=== PATIENT | male | born 1940 | race Two or more races ===

== ENCOUNTER 2018-09-05 07:28 | Day surgery (SDC) | payer MEDICARE, OTHER ==
[~2018-09-05] VITALS: Ht 177.8 cm; Wt 85.0 kg
[~2018-09-05 07:28] MED LIST: ASCO500 PO; AZAT50 PO; CALCAVITD PO; CHOL10002 PO; CLOBETTC TP; DICL.1SO OD; DICL25ER PO; Echinacea400 MG PO; FLUT.05NI; MELO7.5 PO; MULVITA PO; NASACORT10.8 ML; PHENY100ER PO; PRED10 PO; RA MED; REMICADE; Remicade100 MG IV; TOCO400 PO; TURMERIC500 MG PO; VITB100 PO; ZINC15 PO; ZYRTEC10 M1 PO; [UNRECOGNIZED DRUG - OTHER]
[2018-09-05] MEDS ORDERED: Rituxan10 MG/ML (08:09)
[2018-09-05] MEDS ORDERED: VOLTAREN100 GM (08:11)
[2018-09-05] MEDS ORDERED: OXYB5ER (08:11)
[2018-09-05] MEDS ORDERED: FINA5 (08:11)
== END 2018-09-05 10:06 | disposition home or self-care (01) ==
LOC: ORSCSDS 07:28
PROVIDERS: Internal Medicine Gastroenterology
PROC: 0DBM8ZX Excision of Descending Colon, Via Natural or Artificial Opening Endoscopic, Diagnostic (ICD-10-PCS; principal; 2018-09-05 09:00)
DX: Z12.11 Encounter for screening for malignant neoplasm of colon (principal); K63.5 Polyp of colon; Z86.010 Personal history of colon polyps; R56.9 Unspecified convulsions; G47.33 Obstructive sleep apnea (adult) (pediatric); Z79.899 Other long term (current) drug therapy
CPT/HCPCS: 88305; J2704; J7120

== ENCOUNTER 2020-11-03 09:20 | Inpatient (IN) | payer MEDICARE, OTHER ==
[~2020-11-03] VITALS: Ht 165.1 cm; Wt 88.0 kg
[~2020-11-03 09:20] MED LIST changes: +FINA5; +OXYB5ER; +Rituxan10 MG/ML; +VOLTAREN100 GM
[2020-11-03 10:24] LABS: PCO2 Arterial 35.4 mmHg (35-45); PO2 Arterial 62.3 mmHg (80-100); pH Blood Arterial 7.49 (7.35-7.45)
[2020-11-03 10:26] LABS: BASOPHILS ABSOLUTE AUTO 0.01 K/mm3 (0.00-0.23); BASOPHILS PERCENT AUTO 0 % (0-2); EOSINOPHILS ABSOLUTE AUTO 0.03 K/mm3 (0.00-0.68); EOSINOPHILS PERCENT AUTO 1 % (0-6); Hematocrit 40.3 % (37.0-53.0); Hemoglobin 13.9 g/dL (13.5-17.5); IMMATURE GRAN ABSOLUTE AUTO 0.05 K/mm3 (0.00-0.10); IMMATURE GRAN PERCENT AUTO 1 % (0-1); LYMPHOCYTES ABSOLUTE AUTO 0.63 K/mm3 (0.84-5.20); LYMPHOCYTES PERCENT AUTO 10 % (21-46); MONOCYTES ABSOLUTE AUTO 0.29 K/mm3 (0.16-1.47); MONOCYTES PERCENT AUTO 5 % (4-13); Mean Corpuscular HGB 30.8 pg (26.0-34.0); Mean Corpuscular HGB Conc 34.5 g/dL (31.5-36.5); Mean Corpuscular Volume 89 fL (80-100); Mean Platelet Volume 9.2 fL (9.1-12.4); NEUTROPHILS ABSOLUTE AUTO 5.44 K/mm3 (1.96-9.15); NEUTROPHILS PERCENT AUTO 84 % (41-73); Platelet Count 259 K/mm3 (150-400); RDW Coefficient Variation 13.5 % (11.7-14.2); RDW Standard Deviation 44.5 fL (35.1-46.3); Red Blood Cell Count 4.52 M/mm3 (4.30-5.90); White Blood Cell Count 6.45 K/mm3 (4.00-11.30)
[2020-11-03 10:38] LABS: Albumin, Blood 2.8 g/dL (3.4-5.0); Albumin/Globulin Ratio 0.6 (0.8-1.8); Bilirubin, Total 0.4 mg/dL (0.1-1.0); Calcium, Blood 8.5 mg/dL (8.5-10.1); Creatinine, Blood 1.22 mg/dL (0.60-1.20); Globulin, Blood 4.9 g/dL (2.2-4.0); Potassium, Blood 4.2 mmol/L (3.5-5.5); Total Protein, Blood 7.7 g/dL (6.4-8.2)
[2020-11-03 11:18] LABS: International Normalized Ratio 1.05; Prothrombin Time Results 11.3 Sec (9.7-11.5)
[2020-11-03 12:04] LABS: SARS-Cov-2 (COVID-19) PCR, MMC POSITIVE (NEGATIVE)
--- NOTE | 2020-11-03 14:55 | NUR ---
Telephone report from ED.
[2020-11-03] MEDS ORDERED: PHENY100ER PO (15:51)
--- NOTE | 2020-11-03 17:50 | NUR ---
Pt arrived from ED on stretcher, and was slid over to PCU bed. 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 what is your lung disease called? What medications are you taking at home?" He gives some conflicting answers at times. Son called and said that the pt lost his just 18 months ago to stomach cancer, and that it was his who handled a lot of the details for the pt. 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 Pt is cooperative, non-anxious, and is able to answer the majority of the admission history questions. States that he recevied both doses of the Moderna Covid vaccine this year, which his son confirms is true.
[2020-11-04 04:11] LABS: BASOPHILS ABSOLUTE AUTO 0.01 K/mm3 (0.00-0.23); BASOPHILS PERCENT AUTO 0 % (0-2); EOSINOPHILS ABSOLUTE AUTO 0.01 K/mm3 (0.00-0.68); EOSINOPHILS PERCENT AUTO 0 % (0-6); Hematocrit 38.6 % (37.0-53.0); Hemoglobin 12.7 g/dL (13.5-17.5); IMMATURE GRAN ABSOLUTE AUTO 0.03 K/mm3 (0.00-0.10); IMMATURE GRAN PERCENT AUTO 0 % (0-1); LYMPHOCYTES ABSOLUTE AUTO 0.59 K/mm3 (0.84-5.20); LYMPHOCYTES PERCENT AUTO 8 % (21-46); MONOCYTES ABSOLUTE AUTO 0.37 K/mm3 (0.16-1.47); MONOCYTES PERCENT AUTO 5 % (4-13); Mean Corpuscular HGB 30.1 pg (26.0-34.0); Mean Corpuscular HGB Conc 32.9 g/dL (31.5-36.5); Mean Corpuscular Volume 92 fL (80-100); Mean Platelet Volume 9.2 fL (9.1-12.4); NEUTROPHILS ABSOLUTE AUTO 6.32 K/mm3 (1.96-9.15); NEUTROPHILS PERCENT AUTO 86 % (41-73); Platelet Count 275 K/mm3 (150-400); RDW Coefficient Variation 13.8 % (11.7-14.2); RDW Standard Deviation 46.5 fL (35.1-46.3); Red Blood Cell Count 4.22 M/mm3 (4.30-5.90); White Blood Cell Count 7.33 K/mm3 (4.00-11.30)
[2020-11-04 04:32] LABS: Alanine Aminotransfer (ALT/SGP 141 U/L (12-78); Albumin, Blood 2.3 g/dL (3.4-5.0); Albumin/Globulin Ratio 0.5 (0.8-1.8); Alk Phos 104 U/L (50-136); Anion Gap 5 mmol/L (6-16); Aspartate Aminotrans (AST/SGOT 186 U/L (12-37); Bilirubin, Total 0.3 mg/dL (0.1-1.0); Blood Urea Nitrogen 17 mg/dL (8-24); Bun/Creatinine Ratio 17.9 (12.0-20.0); CO2, Blood 29 mmol/L (21-32); Chloride, Blood 102 mmol/L (98-108); Creatinine, Blood 0.95 mg/dL (0.60-1.20); Globulin, Blood 4.5 g/dL (2.2-4.0); Glomerular Filtration Rate >60 (60-); Glucose, Blood 114 mg/dL (70-99); Magnesium, Blood 2.6 mg/dL (1.6-2.4); Potassium, Blood 4.6 mmol/L (3.5-5.5); Sodium, Blood 136 mmol/L (136-145); Total Protein, Blood 6.8 g/dL (6.4-8.2)
--- NOTE | 2020-11-04 06:22 | NUR ---
SHIFT SUMMARY PATIENT FOUND TO BE A PLEASANT MAN WHO IS A&OX4, FOLLOWING COMMANDS WITH GEN WEAKNESS. LOW GRADE TEMP WITH TMAX OF 99.9. NO PAIN OR DISTRESS NOTED UPON ASSESSMENT. VSS. NSR ON THE MONITOR. USING AIRVO WITH 60L, 65% FIO2 SATING LOW 90'S. DESATS WITH EXERTION BUT RECOVERS QUICKLY. DENIES COUGH. TOLERATING REGULAR DIET BUT NOT MUCH OF AN APPETITE. VOIDING WELL PER URINAL. BM X2 IN BSC WITH ONE PERSON ASSIST. NO ACUTE CONCERNS AT THIS TIME. WILL CONTINUE TO MONITOR UNTIL REPORT GIVEN TO LATOSHA CERVANTES.
--- NOTE | 2020-11-04 17:55 | NUR ---
SHIFT SUMMARY; ASSUMED CARE AT 0700. A/A/OX4 THROUGHOUT SHIFT. AIRVO 90% AND 60L WHEN ASSUMING CARE. O2 SATS DECREASING TO 80-84% WITH EXERTION. REPOSITIONS SELF IN BED, USES URINAL AT BEDSIDE. THROUGHOUT DAY DIFFICULTY RECOVERING FROM DESATURATIONS, RT NOTIFIED. PLACED ON BIPAP 03/15 FI02 60%. SATS INCREASED TO 93% ON BIPAP. REMAINS AWAKE AND ORIENTED. EDUCATED ON PRONE POSITION AND OR HIGH FOWLERS. STATES CANNOT LAY ON STOMACH BUT WOULD ATTEMPT TO LAY ON SIDE. DECREASED APPETITE TODAY, MEDICATED PER EMAR. WILL CONTINUE TO MONITOR AND TREAT UNTIL CHANGE OF SHIFT.
[2020-11-05 04:08] LABS: BASOPHILS ABSOLUTE AUTO 0.01 K/mm3 (0.00-0.23); BASOPHILS PERCENT AUTO 0 % (0-2); EOSINOPHILS PERCENT AUTO 0 % (0-6); Hemoglobin 13.5 g/dL (13.5-17.5); IMMATURE GRAN ABSOLUTE AUTO 0.08 K/mm3 (0.00-0.10); IMMATURE GRAN PERCENT AUTO 1 % (0-1); LYMPHOCYTES ABSOLUTE AUTO 0.54 K/mm3 (0.84-5.20); LYMPHOCYTES PERCENT AUTO 8 % (21-46); MONOCYTES ABSOLUTE AUTO 0.37 K/mm3 (0.16-1.47); MONOCYTES PERCENT AUTO 5 % (4-13); Mean Corpuscular HGB 30.1 pg (26.0-34.0); Mean Corpuscular HGB Conc 32.9 g/dL (31.5-36.5); Mean Corpuscular Volume 92 fL (80-100); Mean Platelet Volume 9.5 fL (9.1-12.4); NEUTROPHILS ABSOLUTE AUTO 5.86 K/mm3 (1.96-9.15); NEUTROPHILS PERCENT AUTO 85 % (41-73); Platelet Count 332 K/mm3 (150-400); RDW Coefficient Variation 13.9 % (11.7-14.2); RDW Standard Deviation 47.2 fL (35.1-46.3); Red Blood Cell Count 4.48 M/mm3 (4.30-5.90); White Blood Cell Count 6.86 K/mm3 (4.00-11.30)
[2020-11-05 04:21] LABS: International Normalized Ratio 1.13; Prothrombin Time Results 12.1 Sec (9.7-11.5)
[2020-11-05 04:34] LABS: Alanine Aminotransfer (ALT/SGP 740 U/L (12-78); Albumin, Blood 2.3 g/dL (3.4-5.0); Albumin/Globulin Ratio 0.5 (0.8-1.8); Alk Phos 238 U/L (50-136); Anion Gap 5 mmol/L (6-16); Bilirubin, Total 0.7 mg/dL (0.1-1.0); Blood Urea Nitrogen 16 mg/dL (8-24); Bun/Creatinine Ratio 19.4 (12.0-20.0); CO2, Blood 28 mmol/L (21-32); Calcium, Blood 8.2 mg/dL (8.5-10.1); Chloride, Blood 103 mmol/L (98-108); Creatinine, Blood 0.83 mg/dL (0.60-1.20); Globulin, Blood 4.7 g/dL (2.2-4.0); Glomerular Filtration Rate >60 (60-); Glucose, Blood 120 mg/dL (70-99); Magnesium, Blood 2.5 mg/dL (1.6-2.4); Phosphorus, Blood 2.5 mg/dL (2.5-4.9); Potassium, Blood 4.3 mmol/L (3.5-5.5); Sodium, Blood 136 mmol/L (136-145); Thyroid Stimulating Hormone 0.688 uIU/mL (0.360-4.800); Troponin I <0.015 ng/mL (0.000-0.040)
[2020-11-05 04:37] LABS: Aspartate Aminotrans (AST/SGOT 1076 U/L (12-37)
--- NOTE | 2020-11-05 05:35 | NUR ---
SHIFT SUMMARY PT IS ALERT AND ORIENTED WITH NO ACUTE CHANGES T/O THE NIGHT. PT'S VITALS ARE STABLE. PT IS ON BIPAP FIO2 OF 60% 12/8 SATS ARE RANGING FROM 85-92%. PT DOES NOT TOLERATE WELL BEING ON HIFLOW FOR ORAL MEDICATIONS DE SATS QUICKLY. PT USES URINAL AT BESIDE BYSELF. INFUSING FLUIDS PER EMAR ORDER. PT DID REPORT HEADACHE OF 10/10 AND WAS MEDICATED PER EMAR. CALL LIGHT IS WITHIN REACH.
[2020-11-05 17:53] LABS: Alanine Aminotransfer (ALT/SGP 783 U/L (12-78); Albumin, Blood 2.3 g/dL (3.4-5.0); Albumin/Globulin Ratio 0.5 (0.8-1.8); Alk Phos 242 U/L (50-136); Anion Gap 3 mmol/L (6-16); Aspartate Aminotrans (AST/SGOT 858 U/L (12-37); Bilirubin, Total 0.9 mg/dL (0.1-1.0); Blood Urea Nitrogen 17 mg/dL (8-24); Bun/Creatinine Ratio 21.8 (12.0-20.0); CO2, Blood 30 mmol/L (21-32); Calcium, Blood 8.2 mg/dL (8.5-10.1); Chloride, Blood 103 mmol/L (98-108); Creatinine, Blood 0.78 mg/dL (0.60-1.20); Globulin, Blood 4.7 g/dL (2.2-4.0); Glomerular Filtration Rate >60 (60-); Glucose, Blood 141 mg/dL (70-99); Potassium, Blood 4.6 mmol/L (3.5-5.5); Sodium, Blood 136 mmol/L (136-145)
--- NOTE | 2020-11-05 17:53 | NUR ---
SHIFT SUMMARY; ASSUMED CARE AT 0700. BIPAP 03/15 60%. SPEAKING INSHORT SENTENCES. A/A/OX4. RECLINED AT 30 DEGREES, SAT UPRIGHT TO 90 DEGREES. SATS 90%. BIPAP REMOVED FOR PO MEDS AND WATER. SATS DECREASED TO 82%, RECOVERED WHEN REPLACED ON BIPAP. UP TO RECLINER CHAIR IN AM WITH ASSISTANCE. SAT FOR APPROX 2 HOURS, STATES IS NOT COMFORTABLE AND REQUESTED GOING BACK TO BED. PLACED IN BED IN HIGH FOWLERS. BIPAP REMOVED IN AFTERNOON AND PLACED ON AIR VO BY RT. TOLERATING WELL, 90% 02 SATS. VOIDING IN URINAL WITHOUT DIFFICULTY. SON AT BEDSIDE IN AFTERNOON. PALLATIVE CARE RN WITH SON FOR PLAN OF CARE. WILL CONTINUE TO MONITOR AND TREAT UNTIL CHANGE OF SHIFT. AIR VO 60L 75%.
--- NOTE | 2020-11-05 21:45 | NUR ---
ASSUMED CARE OF PATIENT AT APPROXIMATELY 1900 FROM ALIS Morin RN. PATIENT ALERT AND ORIENTED; APPEARS VERY ANXIOUS BUT REPORTS "I AM THE MOST CALM I CAN BE"; RESPIRATORY RATE IN 40-60'S AT START OF SHIFT AND NEEDED TO BE PLACED ON BIPAP FROM HIFLOW AIRVO DUE TO DESATURATION. PATIENT DENIES PAIN, NUMBNESS, TINGLING, DIZZINESS OR NAUSEA. PATIENT REPORTS HIS NOSE IS A LITTLE TENDER FROM BIPAP AND REPORTS HE DOESNT WANT TO GO BACK ON IT UNLESS HE HAS TOO; ATTEMPTED TURNING AND ORAL CARE ON AIRVO AND PATIENT DESATURATED INTO 70'S; RECOVERED WITH BIPAP; DISCUSSED WITH RT AND VINE PRUNER. NSR ON TELE. PIV INFUSING IVF PER ORDER.
--- NOTE | 2020-11-06 04:01 | NUR ---
PATIENT'S RESPIRATORY RATE HAS BEEN 36-62 ALL NIGHT; DISCUSSED WITH RT MULTIPLE TIMES; FIO2 90-100%; DESATS WITH ACTIVITY; CALLED DR. VIDES; ORDERS FOR TRANSFER TO ICU AND TO MAKE SURE FI02 IS AT 100%.
--- NOTE | 2020-11-06 04:35 | NUR ---
REPORT GIVEN TO MARIANNE Morin RN. PATIENT TO BE TRANSPORTED TO ICU14 VIA PCU STRETCHER WILL ALL BELONGINGS AND CHART.
--- NOTE | 2020-11-06 05:08 | NUR ---
ASSUMED PT CARE FROM LOGISTICS OPERATIONS DIRECTOR AT 0455 PT ARRIVED ALERT AND ORIENTED AND ABLE TO MAKE NEEDS KNOWN. BIPAP 03/15; FIO2 100%, RESP RATE 40-50'S. SPO2 94%. LUNG SOUNDS ARE CLEAR T/O WITH INSPIRATORY CRACKLES NOTED TO LEFT LOWER LOBE. PT ABLE TO ANSWER YES/NO QUESTIONS; UNABLE TO SPEAK IN COMPLETE SENTENCES AT THIS TIME. PT DENIES FEELING FATIGUED FROM BREATHING SO RAPIDLY. DOES NOT APPEAR ANXIOUS AT THIS TIME. VERY CALM AND COOPERATIVE WITH CARES. 20G TO LEFT AC THAT IS SALINE LOCKED AT THIS TIME. VESSEL WELDER AT BEDSIDE TO PLACE POWERGLIDE AT THIS TIME. PT IS NSR WITH HR 90'S; BP'S STABLE, SEE FLOWSHEET. HEART TONES ARE DISTANT. ABDOMEN IS SOFT, NON-TENDER WITH ACTIVE BT X4 QUADRANTS. PT HAS A BRIEF ON AT THIS TIME; PER REPORT HE WAS UTILIZING URINAL. TEMP 99.5 AT THIS TIME. SKIN INTACT. ALL PULSES ARE PALPABLE AND STRONG AT THIS TIME. WILL CONTINUE TO MONITOR UNTIL REPORT IS HANDED OFF TO ONCOMING RN.
--- NOTE | 2020-11-06 06:07 | NUR ---
CALLED JALEN CORONADO TO UPDATE ON PATIENT'S TRANSFER TO ICU14
[2020-11-06 07:04] LABS: Alanine Aminotransfer (ALT/SGP 581 U/L (12-78); Albumin, Blood 2.3 g/dL (3.4-5.0); Albumin/Globulin Ratio 0.5 (0.8-1.8); Alk Phos 234 U/L (50-136); Anion Gap 5 mmol/L (6-16); Aspartate Aminotrans (AST/SGOT 377 U/L (12-37); Bilirubin, Total 1.1 mg/dL (0.1-1.0); Blood Urea Nitrogen 18 mg/dL (8-24); Bun/Creatinine Ratio 20.9 (12.0-20.0); CO2, Blood 29 mmol/L (21-32); Calcium, Blood 8.3 mg/dL (8.5-10.1); Chloride, Blood 103 mmol/L (98-108); Creatinine, Blood 0.86 mg/dL (0.60-1.20); Globulin, Blood 4.7 g/dL (2.2-4.0); Glomerular Filtration Rate >60 (60-); Glucose, Blood 117 mg/dL (70-99); Sodium, Blood 137 mmol/L (136-145)
--- NOTE | 2020-11-06 08:05 | NUR ---
PT RESTING IN BED ON BIPAP. A/O X4. DENIES PAIN OR N/V. TACHYPNEIC WITH RR 30'S-40'S. SPO2 93%. HELD PO MEDS DUE TO HIGH RR, WILL TALK TO MD ABOUT CHANGING SOME TO IV. PT IS ABLE TO SHIFT HIS WEIGHT IN BED AND USES URINAL INDEP. NO REQUESTS AT THE MOMENT.
--- NOTE | 2020-11-06 10:44 | NUR ---
DR. ROCK HAS BEEN CONSULTED. NEW ORDERS TO INCREASE BIPAP SETTINGS. FIO2 INCREASED TO 100% ON PREVIOUS BIPAP SETTINGS. PT DOES NOT APPEAR ANXIOUS BUT HE DOES STATE HE IS GETTING TIRED.
--- NOTE | 2020-11-06 18:35 | NUR ---
SUMMARY PT RESTING ON BIPAP. ONLY TOOK SHORT BREAK FOR ORAL CARE. RR 30'S-40'S. BIPAP 16/10 FIO2 90%. OCCASIONAL DRY COUGH. PT WILL DESAT WITH EXERTION. PT IS ABLE TO MOVE SELF IN BED AND BOOSTS SELF UP. WILL USE URINAL INDEP WELL. SPOKE WITH DR. ROCK ABOUT STARTING IVF DUE TO INABILITY TO TAKE PO. ALSO GOT KEPPRA CHANGED TO IV DOSE TODAY. PT IS SUPPOSE TO GO FOR CT, AWAITING STAFF FROM CT TO BE READY FOR PT. SON VISITED TODAY AND WAS UPDATED. NO OTHER CHANGES.
--- NOTE | 2020-11-06 19:15 | NUR ---
ASSUMED PT CARE FROM ROSEY CERVANTES AT 1900. PT REMAINS DEPENDENT ON BIPAP. SETTINGS 16/10; FIO2 90%, SPO2 >90%, RESP RATE 40'S. PT REMAINS ALERT AND ORIENTED AND ABLE TO MAKE HIS NEEDS KNOWN. NSR WITH HR 90'S; BP'S STABLE, SEE FLOWSHEET. MIDLINE TO LEFT UPPER ARM THAT IS SALINE LOCKED AT THIS TIME. PT IS TO BE STARTED ON LR AT 75MLS/HR; HOWEVER, PT IS TO GO TO CT FOR PE STUDY; THEREFORE, WILL INITIATE FLUIDS UPON RETURN TO UNIT. PT REMAINS VOIDING IN URINAL THAT IS DARK ENRIQUE, BUT CLEAR. PT HAD NO PO INTAKE TODAY D/T RESPIRATORY STATUS. WILL CONTINUE TO MONITOR I/O. SEE SHIFT SUMMARY FOR FURTHER DETAILS.
--- NOTE | 2020-11-06 20:25 | NUR ---
PT TO CT
--- NOTE | 2020-11-06 22:15 | NUR ---
UPDATE: PT FOUND TO HAVE DISCONNECTED THE BiPAP CIRCUIT BY ACCIDENT. THIS RN QUICKLY AT BEDSIDE, HOWEVER W/IN THE APPROX 2min PT WAS DISCONNECTED, SATS DROPPED TO 65% W/ A STRONG PLETH. EBONY MASK REPLACED & FiO2 INC TO 100%. AFTER 5MIN PT RECOVERED FULLY TO 93% BUT REMAINS TACHYPNEIC. OF NOTE: WHILE ASSISTING PT, HE MADE SEVERAL REFERENCES TO WANTING TO ; STATING "I WANT TO LEAVE THIS WORLD", "PULL THE PLUG & LET ME ". ATTEMPTED TO CONSOLE PT & OFFER ENCOURAGEMENT, PT APPEARED MINIMALLY RECEPTIVE. PRIMARY RN UPDATED.
[2020-11-07 05:39] LABS: BASOPHILS ABSOLUTE AUTO 0.02 K/mm3 (0.00-0.23); BASOPHILS PERCENT AUTO 0 % (0-2); EOSINOPHILS ABSOLUTE AUTO 0.03 K/mm3 (0.00-0.68); EOSINOPHILS PERCENT AUTO 0 % (0-6); Hematocrit 39.7 % (37.0-53.0); Hemoglobin 13.3 g/dL (13.5-17.5); IMMATURE GRAN ABSOLUTE AUTO 0.11 K/mm3 (0.00-0.10); IMMATURE GRAN PERCENT AUTO 1 % (0-1); LYMPHOCYTES ABSOLUTE AUTO 0.51 K/mm3 (0.84-5.20); LYMPHOCYTES PERCENT AUTO 5 % (21-46); MONOCYTES ABSOLUTE AUTO 0.49 K/mm3 (0.16-1.47); MONOCYTES PERCENT AUTO 4 % (4-13); Mean Corpuscular HGB 30.7 pg (26.0-34.0); Mean Corpuscular HGB Conc 33.5 g/dL (31.5-36.5); Mean Corpuscular Volume 92 fL (80-100); Mean Platelet Volume 9.2 fL (9.1-12.4); NEUTROPHILS PERCENT AUTO 90 % (41-73); Platelet Count 460 K/mm3 (150-400); RDW Coefficient Variation 14.4 % (11.7-14.2); RDW Standard Deviation 48.7 fL (35.1-46.3); Red Blood Cell Count 4.33 M/mm3 (4.30-5.90); White Blood Cell Count 11.36 K/mm3 (4.00-11.30)
--- NOTE | 2020-11-07 06:00 | NUR ---
END OF SHIFT SUMMARY NO SIGNIFICANT CHANGES SINCE LAST ENTRY. PT TOLERATED BIPAP 16/10; FIO2 100% WITH RESP RATE 40-60'S; UPPER 50'S TO 60'S WITH ANY SORT OF EXERTION. PT IS ABLE TO SHIFT OWN WEIGHT AND ASSIST WITH BOOSTING IN BED; HOWEVER, HE REQUIRES ENCOURAGEMENT WITH REPOSITIONING. PT ABLE TO TOLERATE SMALL SIPS OF WATER. ORAL CARES PERFORMED Q4 HOURS. LR INFUSING AT 75MLS/HR VIA MIDLINE TO LEFT UPPER ARM. 20G STARTED TO LEFT FOREARM. PT REMAINS ALERT AND ORIENTED. VERY CALM AND COOPERATIVE WITH CARES. CALL LIGHT WITHIN REACH AND PT IS ABLE TO MAKE HIS NEEDS KNOWN. WILL CONTINUE TO MONITOR UNTIL REPORT IS HANDED OFF TO ONCOMING RN.
[2020-11-07 06:01] LABS: Alanine Aminotransfer (ALT/SGP 381 U/L (12-78); Albumin, Blood 2.2 g/dL (3.4-5.0); Albumin/Globulin Ratio 0.4 (0.8-1.8); Alk Phos 216 U/L (50-136); Anion Gap 5 mmol/L (6-16); Aspartate Aminotrans (AST/SGOT 131 U/L (12-37); Bilirubin, Total 1.2 mg/dL (0.1-1.0); Blood Urea Nitrogen 19 mg/dL (8-24); Bun/Creatinine Ratio 24.5 (12.0-20.0); CO2, Blood 30 mmol/L (21-32); Calcium, Blood 8.6 mg/dL (8.5-10.1); Chloride, Blood 104 mmol/L (98-108); Creatinine, Blood 0.77 mg/dL (0.60-1.20); Glomerular Filtration Rate >60 (60-); Glucose, Blood 122 mg/dL (70-99); Potassium, Blood 4.2 mmol/L (3.5-5.5); Sodium, Blood 139 mmol/L (136-145); Total Protein, Blood 7.2 g/dL (6.4-8.2)
--- NOTE | 2020-11-07 09:05 | NUR ---
[place] of care Pt is a/o x 4 this morning with no complaints. He remains on the Bipap at 16/10 at 95%. Pt O2 sats were in the mid 80's and RT was notifiied. O2 was turned back up to 100% and now the Sats are at 91%. RR 30-40's and he is tachycardic in the one teens. Charge nurse is aware. Pt was able to take his PO meds but desaturated quickly until the mask was replaced and he was able to come back up into the high 90's. Pt is not able to tolerate eating at this time due to being dependent on the Bipap. he is able to make his needs knowna and uses his call light when needed. He uses the urinal in bed.
[2020-11-07 09:27] LABS: PO2 Arterial 57.3 mmHg (80-100); pH Blood Arterial 7.45 (7.35-7.45)
[2020-11-07 10:23] LABS: Source, Urine Catheter
[2020-11-07 10:36] LABS: Appearance, Urine Clear (Clear); Bilirubin, Urine Neg (Neg); Blood, Urine 2+ (Neg); Color, Urine Yellow (P-Yellow); Glucose Qualitative, Urine Neg (Neg); Ketones, Urine 2+ (Neg); Leukocyte Esterase, Urine Neg (Neg); Nitrite, Urine Neg (Neg); Protein, Urine 3+ (Neg); Urobilinogen, Urine 2+ (Normal)
[2020-11-07 11:26] LABS: Bacteria Few /hpf; Mucus Mod (0-Heavy); Squamous Epithelial Cells Few /hpf (Few); White Blood Cells, Urine 0-2 /hpf (0-5)
--- NOTE | 2020-11-07 12:19 | NUR ---
Intubation Note Approx 0930 Dr Krause rounded on this patient and decided to intubate due to his respiratory status. 0956 20 mg etomidate and 20 mg rocuronium were given per dr orders. 0958 glidescope in, O2 sats @ 87%. ETT in 8.0 and 26.0 cm at the teeth. Pt was positive for color change. 1000 40 mcg/kg/min propofol drip started. 1002 propofol increased to 50. 1004 100 mcg fentanyl given IVP per dr order. 1007 OGT placed. 1013 temp probe hernandez placed and UA sent to lab. Vent AC 24//14/100%. After intubation pt O2 sats in the 90's. Bilat wrist restraints in place for safety.
--- NOTE | 2020-11-07 17:42 | NUR ---
Shift Summary Pt was a/o x 4 this morning before being intubated and sedated. Dr spoke with him and per previous note, he was intubated. His propofol has been titrated as charted on the ICU flowsheet and is currently running at 40 mcg/kg/min. The precedex has been on standby per dr r/t his low heart rate. His heart rate is currently at 70 bpm. He is in a-fib and the dr is aware and ecg was done as ordered. Temp hernandez is patent with aj urine output. Pt now has a PICC line to his FRANCESCA and a powerglide and both are patent. Tube feeding was started at 25 ml/ hour as ordered. Pt son was here this afternoon and has been updated.
--- NOTE | 2020-11-07 21:22 | NUR ---
ASSUMED PT CARE AT 1915 FROM BILLY GABRIEL PT INTUBATED AND SEDATED. PROPOFOL AT 40MCG/KG/MIN, BUT SHORTLY INCREASED TO 50MCG/KG/MIN D/T CONTINUOUS COUGHING EPISODES. VENT SETTINGS: AC/VC 24, VT 400, PEEP 12, FIO2 70% AND INCREASED TO 80% D/T SPO2 MAINTAINING 85%; PT HAS REMAINED >90% SINCE FIO2 INCREASED TO 80%. RR UPPER 20'S. PT ABLE TO OPEN EYES TO VERBAL STIMULI AND FOLLOW COMMANDS. WITHDRAWALS FROM NOXIOUS STIMULI. PT IS IN AFIB WITH RATE 60'S. BP'S STABLE AT THIS TIME, SEE FLOWHSEET. LR INFUSING AT 75MLS/HR. PICC TO RIGHT UPPER ARM AND MIDLINE TO LEFT UPPER ARM. VHP AT 25MLS/HR; GOAL IS 40MLS/HR. NO RESIDUALS NOTED. TEMP TANNER IS PATENT AND DRAINING DARK ENRIQUE COLORED URINE TO GRAVITY. SEE SHIFT SUMMARY FOR FURTHER DETAILS.
[2020-11-08 04:06] LABS: PCO2 Arterial 46.2 mmHg (35-45); PO2 Arterial 55.3 mmHg (80-100); pH Blood Arterial 7.41 (7.35-7.45)
[2020-11-08 04:33] LABS: BASOPHILS ABSOLUTE AUTO 0.01 K/mm3 (0.00-0.23); BASOPHILS PERCENT AUTO 0 % (0-2); EOSINOPHILS ABSOLUTE AUTO 0.45 K/mm3 (0.00-0.68); EOSINOPHILS PERCENT AUTO 5 % (0-6); Hematocrit 35.7 % (37.0-53.0); Hemoglobin 11.9 g/dL (13.5-17.5); IMMATURE GRAN ABSOLUTE AUTO 0.08 K/mm3 (0.00-0.10); IMMATURE GRAN PERCENT AUTO 1 % (0-1); LYMPHOCYTES ABSOLUTE AUTO 0.56 K/mm3 (0.84-5.20); LYMPHOCYTES PERCENT AUTO 7 % (21-46); MONOCYTES ABSOLUTE AUTO 0.23 K/mm3 (0.16-1.47); MONOCYTES PERCENT AUTO 3 % (4-13); Mean Corpuscular HGB 30.9 pg (26.0-34.0); Mean Corpuscular HGB Conc 33.3 g/dL (31.5-36.5); Mean Corpuscular Volume 93 fL (80-100); Mean Platelet Volume 9.5 fL (9.1-12.4); NEUTROPHILS ABSOLUTE AUTO 7.04 K/mm3 (1.96-9.15); NEUTROPHILS PERCENT AUTO 84 % (41-73); Platelet Count 401 K/mm3 (150-400); RDW Coefficient Variation 14.5 % (11.7-14.2); RDW Standard Deviation 49.7 fL (35.1-46.3); Red Blood Cell Count 3.85 M/mm3 (4.30-5.90); White Blood Cell Count 8.37 K/mm3 (4.00-11.30)
[2020-11-08 04:52] LABS: Alanine Aminotransfer (ALT/SGP 223 U/L (12-78); Albumin, Blood 1.6 g/dL (3.4-5.0); Albumin/Globulin Ratio 0.4 (0.8-1.8); Alk Phos 167 U/L (50-136); Anion Gap 3 mmol/L (6-16); Aspartate Aminotrans (AST/SGOT 58 U/L (12-37); Bilirubin, Total 0.6 mg/dL (0.1-1.0); Blood Urea Nitrogen 28 mg/dL (8-24); Bun/Creatinine Ratio 37.3 (12.0-20.0); CO2, Blood 28 mmol/L (21-32); Calcium, Blood 8.1 mg/dL (8.5-10.1); Chloride, Blood 107 mmol/L (98-108); Creatinine, Blood 0.75 mg/dL (0.60-1.20); Globulin, Blood 4.2 g/dL (2.2-4.0); Glomerular Filtration Rate >60 (60-); Glucose, Blood 135 mg/dL (70-99); Magnesium, Blood 2.7 mg/dL (1.6-2.4); Phosphorus, Blood 3.1 mg/dL (2.5-4.9); Sodium, Blood 138 mmol/L (136-145); Total Protein, Blood 5.8 g/dL (6.4-8.2)
--- NOTE | 2020-11-08 05:13 | NUR ---
END OF SHIFT SUMMARY NO SIGNIFICANT CHANGES. VENT SETTINGS REMAIN AC/VC 24, VT 370, PEEP 20, FIO2 100%, SPO2 95%. RR 24. NIMBEX 1.5MCG/KG/MIN; TOF 4/4. NO COUGH. NO GAG. PROPOFOL AT 35MCG/KG/MIN. BIS 45. LUNG SOUNDS NOTED TO HAVE RUB TO LEFT UPPER LOBE. CREPITUS PALPATED TO MID STERNUM AREA. PT HAS BEEN NSR WITH HR 60'S. BP'S STABLE, SEE FLOWSHEET. VHP AT GOAL OF 30ML/HR. NO BM THIS SHIFT. TEMP TANNER PATENT AND DRAINING CLEAR, YELLOW URINE TO GRAVITY. PT REMAINS OUT OF RESTRAINTS AT THIS TIME. PH 7.24 THIS MORNING; THEREFORE, BICARB GTT WAS NOT STARTED PER DR. DUGAN ORDERS TO ONLY INITIATE IF PH <7.20. WILL CONTINUE TO MONITOR UNTIL REPORT IS HANDED OFF TO ONCOMING RN.
--- NOTE | 2020-11-08 05:20 | NUR ---
END OF SHIFT SUMMARY NO SIGNIFICANT CHANGES T/O SHIFT. VENT SETTINGS REMAIN AC/VC 24, VT 400, PEEP 12, FIO2 100%, SPO2 >90%, RR UPPER 20'S. PROPOFOL AT 55MCG/KG/MIN. ADJUNCT FENTANYL GIVEN ONCE THIS SHIFT FOR CONTINUOUS COUGHING EPISODES WITH DROPS IN OXYGEN SATURATIONS. VHP AT GOAL OF 40MLS/HR; NO RESIDUALS NOTED. AFIB WITH HR 60-70'S. BP'S SOFT, BUT STABLE; SEE FLOWSHEET. TEMP TANNER IS PATENT AND DRAINING CLEAR ENRIQUE COLORED URINE TO GRAVITY. WILL CONTINUE TO MONITOR UNTIL REPORT IS HANDED OFF TO ONCOMING RN.
--- NOTE | 2020-11-08 08:00 | NUR ---
ASSUMED CARE: REPORT RECEIVED FROM MARIANNE Francis RN. ASSUMED CARE OF THIS PT AT APPROX 0700. ON ASSESSMENT, THE PT IS SEDATED W/ PROPOFOL & INTUBATED. HE PICKS HEAD UP FROM PILLOW & LOOKS TOWARD VERBAL STIMULUS, RESPONDS WELL TO VERBAL REDIRECTION. LS COARSE T/O, VENT SETTINGS: AC/VC 24/400/12/100% W/ O2 SATS > 90% ON AVG, DESATS TO 86% W/ COUGHING EPISODES. MONITOR SHOWS AFIB W/ HR 70s, BP STABLE. OGT IN PLACE W/ TUBE FEEDS VHP INFUSING AT GOAL RATE OF 40 ML/HR, LOW RESIDUALS. TEMP TANNER PATENT/ DRAINING DARK YELLOW URINE. SKIN CONDITION OVERALL INTACT, Q2H REPOSITIONING TO MAINTAIN SKIN INTEGRITY. WILL CONTINUE TO MONITOR & UPDATE NEEDED.
--- NOTE | 2020-11-08 10:14 | NUR ---
DR DOUGHERTY: PROVIDER IN UNIT THIS AM FOR UPDATE ON PT. NO CHANGES AT THIS TIME.
--- NOTE | 2020-11-08 12:05 | NUR ---
DR DUGAN / UPDATE: PROVIDER AT BEDSIDE TO EVAL PT. SHE WOULD LIKE PRN DOSE OF FENTANYL TO BE GIVEN NOW THE PT IS SLIGHTLY AGITATED AT THIS TIME. DISCUSSED USE OF PRECEDEX & SHE STS OKAY TO RESTART PRECEDEX DRIP AT A LOWER DOSE THAN YESTERDAY (PRECEDEX STOPPED YESTERDAY AFTERNOON FOR BRADYCARDIA W/ HR 50s). SHE WOULD LIKE THE PT TO BE PRONED TING & IF HE DOES NOT TOLERATE PRONING, SHE MAY ORDER A CONTINUOUS FENTANYL OPERATIONS DISPATCHER FOR SEDATION ADJUNCT OR BEGIN NIMBEX DRIP. PROVIDER HAS MADE CHANGES TO VENT SETTINGS W/ PEEP INCREASED TO 14 & FIO2 DECREASED TO 80%, NARENDRA Adorno RT, AWARE OF THESE CHANGES & PROVIDERS ORDERS TO PRONE PT. TWO RNs, RT & SUCTION DREDGE DUMPING SUPERVISOR AT BEDSIDE FOR PT PRONING. THE PT HAS BEEN SUCCESSFULLY PRONED W/ PILLOWS SUPPORTING BONY PROMINENCES & ETT SECURE/ UNOBSTRUCTED. O2 SATS INCREASED TO 97% & THE PT APPEARS COMFORTABLE AFTER RECEIVING PRN DOSE OF FENTANYL PER EMAR.
--- NOTE | 2020-11-08 16:10 | NUR ---
UPDATE: PT URGENTLY UNPRONED & RETURNED TO SUPINE POSITIONING. THIS RN AT BEDSIDE TO MEDICATE PT FOR INCREASED AGITATION & COUGHING EPISODE. MONITOR ALARMED & PT NOTED TO BE HAVING WIDE-COMPLEX BEATS CONSISTENTLY - SEE STRIPS IN CHART. PT CONTINUES HAVING A PULSE DURING THIS TIME. OTHER STAFF & DR DUGAN AT BEDSIDE DURING THIS INCIDENT. PACER PADS PLACED & PT HAS BEEN RETURNED TO SUPINE POSITIONING W/ DR DUGAN MANAGING ETT DURING THE REPOSITION. PRIOR RHYTHM OF AFIB W/ NARROW QRS COMPLEXES, HR 60-70s. NO FURTHER ECTOPY NOTED AT THAT TIME. BLOOD HAS BEEN DRAWN FROM PICC LINE & DR DUGAN HAS PLACED ORDERS. EKG OBTAINED SHOWS AFIB & PROVIDER AWARE.
[2020-11-08 16:28] LABS: Magnesium, Blood 2.5 mg/dL (1.6-2.4); Potassium, Blood 4.6 mmol/L (3.5-5.5)
--- NOTE | 2020-11-08 18:38 | NUR ---
SHIFT SUMMARY: NO ACUTE CHANGES SINCE PRIOR UPDATES. PT REMAINS SEDATED W/ PROPOFOL/ FENTANYL & INTUBATED. PRECEDEX HAS BEEN PLACED ON STANDBY & DISCONNECTED FROM PT R/T BRADYCARDIA W/ HR 50s. VENT SETTINGS: AC/VC 24/400/14/80% W/ O2 SATS > 92% ON AVG. MONITOR NOW SHOWING AFIB W/ HR 50s, BP STABLE. OGT IN PLACE W/ VHP INFUSING AT GOAL RATE OF 40 ML/HR, LOW RESIDUALS. TEMP TANNER PATENT/ DRAINING DARK GREEN URINE. SKIN CONDITION OVERALL CDI W/ Q2H REPOSITIONING COMPLETED THIS SHIFT. WILL CONTINUE TO MONITOR & REPORT OFF TO ONCOMING RN.
--- NOTE | 2020-11-08 19:46 | NUR ---
ASSUMPTION OF CARE RECEIVED REPORT FROM CARILTA CERVANTES AT 1910, ASSUMED CARE OF PATIENT. PATIENT VENTILATED AND SEDATED ON PROPOFOL OF 60MCG/KG AND PRECEDEX OF 0.1MCG/KG. VENT SETTINGS AC24/400/14/80% WITH 02 SATS OF 92%, VITALS STABLE. OG WITH TF AT GOAL OF 40ML/HR INFUSING. TANNER CATHETER PATENT AND DRAINING CLEAR, YELLOW URINE. BILAT WRIST RESTRAINTS IN PLACE. AMIODARONE AT 1MG/MIN WITH HEART RATE 70'S. NO S/S OF DISTRESS. WILL REVIEW ORDERS AND TREAT PRESCRIBED.
--- NOTE | 2020-11-08 22:42 | NUR ---
HEART RATE PATIENT'S HEART RATE DROPPING BELOW 50, DECREASED AMIO TO 0.5 PER ORDERS. SYSTOLIC B/P BELOW 90, DECREASED PROPOFOL TO 55MCG/KG. CURRENTLY HEART RATE SUSTAINING MID 50'S, WITH SYSTOLIC BP ABOVE 90 AND MAP ABOVE 65. WILL CONTINUE TO MONITOR.
--- NOTE | 2020-11-09 | NUR ---
REASSESSMENT NO ACUTE CHANGES FROM PREVIOUS ASSESSMENT. VITALS STABLE. REMAINS ON 100% FIO2. HEART RATE 50-60. PLACED PRECEDEX ON STANDBY AND INCREASED PROPOFOL FROM 55 TO 60MCG/KG. WILL CONTINUE TO MONITOR.
--- NOTE | 2020-11-09 04:30 | NUR ---
REASSESSMENT PATIENT BECAME HYPOTENSIVE AND BRADYCARDIC. AT 0350 RN TO ROOM, TURNED OFF PRECEDEX AND AMIO, DECREASED PROPOFOL. PATIENT REPOSITIONED, DESAT WITH COUGHING TO MID 80'S. SLOW TO RECOVER AFTER SUCTIONING PROVIDED. REMAINS ON 100% FIO2. SATS NOW UP TO MID 90'S. HEART RATE TO HIGH 50'S, STABLE B/P WITH MAP ABOVE 65. WILL CONTINUE TO MONITOR.
[2020-11-09 05:12] LABS: Alanine Aminotransfer (ALT/SGP 170 U/L (12-78); Albumin, Blood 1.6 g/dL (3.4-5.0); Albumin/Globulin Ratio 0.4 (0.8-1.8); Alk Phos 157 U/L (50-136); Anion Gap 4 mmol/L (6-16); Aspartate Aminotrans (AST/SGOT 35 U/L (12-37); Bilirubin, Total 0.3 mg/dL (0.1-1.0); Blood Urea Nitrogen 27 mg/dL (8-24); Bun/Creatinine Ratio 37.9 (12.0-20.0); CO2, Blood 29 mmol/L (21-32); Calcium, Blood 7.8 mg/dL (8.5-10.1); Chloride, Blood 107 mmol/L (98-108); Creatinine, Blood 0.71 mg/dL (0.60-1.20); Globulin, Blood 3.9 g/dL (2.2-4.0); Glomerular Filtration Rate >60 (60-); Glucose, Blood 139 mg/dL (70-99); Magnesium, Blood 2.4 mg/dL (1.6-2.4); Phosphorus, Blood 3.5 mg/dL (2.5-4.9); Potassium, Blood 4.2 mmol/L (3.5-5.5); Sodium, Blood 140 mmol/L (136-145); Total Protein, Blood 5.5 g/dL (6.4-8.2)
[2020-11-09 05:20] LABS: BASOPHILS ABSOLUTE AUTO 0.04 K/mm3 (0.00-0.23); BASOPHILS PERCENT AUTO 0 % (0-2); EOSINOPHILS ABSOLUTE AUTO 0.67 K/mm3 (0.00-0.68); EOSINOPHILS PERCENT AUTO 7 % (0-6); Hematocrit 40.1 % (37.0-53.0); IMMATURE GRAN ABSOLUTE AUTO 0.29 K/mm3 (0.00-0.10); IMMATURE GRAN PERCENT AUTO 3 % (0-1); LYMPHOCYTES ABSOLUTE AUTO 0.62 K/mm3 (0.84-5.20); LYMPHOCYTES PERCENT AUTO 6 % (21-46); MONOCYTES ABSOLUTE AUTO 0.23 K/mm3 (0.16-1.47); MONOCYTES PERCENT AUTO 2 % (4-13); Mean Corpuscular HGB 31.1 pg (26.0-34.0); Mean Corpuscular HGB Conc 32.4 g/dL (31.5-36.5); Mean Corpuscular Volume 96 fL (80-100); Mean Platelet Volume 9.8 fL (9.1-12.4); NEUTROPHILS ABSOLUTE AUTO 7.96 K/mm3 (1.96-9.15); NEUTROPHILS PERCENT AUTO 81 % (41-73); Platelet Count 389 K/mm3 (150-400); RDW Coefficient Variation 14.6 % (11.7-14.2); Red Blood Cell Count 4.18 M/mm3 (4.30-5.90); White Blood Cell Count 9.81 K/mm3 (4.00-11.30)
--- NOTE | 2020-11-09 06:53 | NUR ---
SHIFT SUMMARY FIO2 NEEDS INCREASED TO 100% OVER NIGHT. PATIENT DROPS SATS TO MID 80'S WITH REPOSITIONING AND COUGHING. SUCTIONING THIN, CLEAR SECRETIONS VIA ETT. AMIO WAS TURNED OFF PER BRADYCARDIA WELL PRECEDEX. PROPOFOL CONTINUES TO BE TITRATED FOR SEDATION. FENTANYL CONTINUES AT 100MCG/HR CONTINUOUS CATERING MANAGER SETTINGS. WILL MONITOR AND REPORT TO ONCOMING RN.
--- NOTE | 2020-11-09 09:58 | NUR ---
CARE ASSUMED OF PT AT 0700. PT SEDATED ON PROPOFOL AT 55MCG FOR MECH VENT. AC24/400/PEEP 14/FIO2 AT 100%. PT'S HOB PLACED TO 15DEGREES FOR TURN. PT IMMEDIATELY DESATURATED TO 81%, HOB IMMEDITALEY RAISED, PT NOT TURNED. SATS INCREASED TO 85% AFTER 5MIN. DR MONAE IN UNIT AND NOTIFIED BY LOOM OVERHAULER. PEEP INCREASED TO [address] DUGAN. SATS CAME UP TO 90% WITHIN A COUPLE OF MINS. PROPOFOL INCREASED TO 60MCG. FENT INFUSING AT 100MCG/HR. PRECEDEX OFF, AMIO OFF. PT MAY BE PRONED TODAY.
--- NOTE | 2020-11-09 11:52 | NUR ---
AT 1045 PT'S SATS DROPPED INTO HIGH 70'S. DR DUGAN NOTIFED. PT PRONED AT [address] DUGAN. PEEP INCREASED TO 18. PT'S SATS INCREASED TO MID 80'S AFTER PRONING, PT'S PEAK PRESSURES >50. ATIVAN 2MG AND FENT 100MCG GIVEN PER DR DUGAN. PROPOFOL INCREASED TO 90MCG; DR DUGAN AWARE. PRECEDEX RESTARTED AT 0.3MCG PER DR DUGAN. PT'S SATS NOW >90%, PEAK PRESSURES IMPROVED. PT TO BE PARALYIZED, NIMBEX ORDERED. PT TO REMAIN PRONED FOR 8HRS.
--- NOTE | 2020-11-09 13:44 | NUR ---
Review of prognsois and pt wishes. Will continue to server support technician and son on this extrodinary journey.
--- NOTE | 2020-11-09 13:48 | NUR ---
PT BREATHING OVER VENT WITH ANY STIMULI. TOF 4/4. DR DUGAN DECREASED FIO2 DOWN TO 90%, TV DOWN TO 300. PEAK PRESSURE AROUND 30-35. BIS MONITOR UNAVAILABLE; ENVIRONMENTAL EMERGENCIES ASSISTANT AND NURSE COORDINATOR AWARE. NIMBEX INCREASED TO 2MCG, PROPOFOL DECREASED TO 70MCG MEDS WERE TITRATED UP FOR VENT TOLERANCE ONLY, PT APPEARED TO BE COMFORTABLE ON ASSESSMENT THIS AM W PROP AT 55MCG AND FENT GTT AT 100MCG/HR.
--- NOTE | 2020-11-09 14:20 | NUR ---
PT'S SON GIVEN FULL UPDATE OVER PHONE, PT'S SON PLANS ON SEEING PT TODAY. SATS NOW BETWEEN 96-97% ON 90% FIO2
--- NOTE | 2020-11-09 16:30 | NUR ---
PT APPEARS TO BE WELL PARALYZED ON NIMBEX. PT IS NOT BREATHING OVER VENT, NO MOVEMENT NOTED. TO4 2/. RESTRAINTS REMOVED. PT'S SON AT BEDSIDE, FULL UPDATE GIVEN.
[2020-11-09 16:34] LABS: PO2 Arterial 83.7 mmHg (80-100); pH Blood Arterial 7.11 (7.35-7.45)
--- NOTE | 2020-11-09 16:41 | NUR ---
ABG RESULTS GIVEN TO DR DUGAN. BICARB GTT TO BE ORDERED. BP TRENDING DOWN W MAPS 55-65. PRECEDEX TO BE STOPPED. WILL TITRATE NIMBEX TO TOF 4/4 LONG PT REMAINS SYNCHRONIZED W VENT. LEVOPHED AVAILABLE TO KEEP MAP >65.
--- NOTE | 2020-11-09 18:41 | NUR ---
TOF 4/4. PT NOT BREATHING OVER VENT AND REMAINS SYNCHRONIZED W VENT. BP IMPROVED NOW THAT PRECEDEX IS OFF, PROPOFOL AT 60MCG. NIMBEX AT 1.5MCG. SATS 98% ON 90% FIO2.
[2020-11-09 21:48] LABS: Base Excess Venous 1.4 mmol/L; Bicarbonate Venous 22.9 mmol/L (24.0-30.0); PCO2 Venous 90.7 mmHg (38-42); PO2 Venous 67.4 mmHg (38-42); pH Blood Venous 7.13 (7.34-7.37)
--- NOTE | 2020-11-09 22:00 | NUR ---
ASSUMPTION OF CARE RECEIVED REPORT FROM BILLY SWANSON @ 1909. ASSUMED CARE OF PATIENT. PT INTUBATED AND SEDATED ON PROPOFOL 60MCG/KG/MIN, PRECEDEX 0.2MCG/MIN. VENT SETTINGS AC: 24/330/18/90%, SATS 98%. AFIB WITH RATES OF 110'S. BP HYPERTENSIVE IN 150'S-160'S. OG IN PLACE WITH TUBE FEED AT GOAL OF 40ML/HR. TEMP TANNER DRAINING TO GRAVITY WITH YELLOW/CLEAR URINE. PT CHANGED FROM PRONE TO SUPINE @ 2029, 3 RN AND RT ASSISTED. PT TOLERATED WELL, SPO2 SATS >96%. @ 2149 RECEIVED CRITICAL VENOUS pH OF 7.13, NOTIFIED DR. DUGAN AND NEW ORDER OF VENTILATIONS INCREASED TO 28.
[2020-11-10 04:05] LABS: PCO2 Arterial 86.9 mmHg (35-45); pH Blood Arterial 7.16 (7.35-7.45)
[2020-11-10 04:06] LABS: PO2 Arterial 70.6 mmHg (80-100)
[2020-11-10 04:30] LABS: BASOPHILS ABSOLUTE AUTO 0.06 K/mm3 (0.00-0.23); BASOPHILS PERCENT AUTO 0 % (0-2); EOSINOPHILS ABSOLUTE AUTO 0.46 K/mm3 (0.00-0.68); EOSINOPHILS PERCENT AUTO 3 % (0-6); Hematocrit 44.4 % (37.0-53.0); Hemoglobin 14.2 g/dL (13.5-17.5); IMMATURE GRAN ABSOLUTE AUTO 0.63 K/mm3 (0.00-0.10); IMMATURE GRAN PERCENT AUTO 5 % (0-1); LYMPHOCYTES ABSOLUTE AUTO 0.57 K/mm3 (0.84-5.20); LYMPHOCYTES PERCENT AUTO 4 % (21-46); MONOCYTES ABSOLUTE AUTO 0.34 K/mm3 (0.16-1.47); MONOCYTES PERCENT AUTO 2 % (4-13); Mean Corpuscular HGB 31.8 pg (26.0-34.0); Mean Corpuscular Volume 100 fL (80-100); Mean Platelet Volume 9.7 fL (9.1-12.4); NEUTROPHILS ABSOLUTE AUTO 11.99 K/mm3 (1.96-9.15); NEUTROPHILS PERCENT AUTO 85 % (41-73); Platelet Count 427 K/mm3 (150-400); RDW Coefficient Variation 15.2 % (11.7-14.2); RDW Standard Deviation 56.8 fL (35.1-46.3); Red Blood Cell Count 4.46 M/mm3 (4.30-5.90); White Blood Cell Count 14.05 K/mm3 (4.00-11.30)
[2020-11-10 04:50] LABS: Albumin, Blood 1.8 g/dL (3.4-5.0); Albumin/Globulin Ratio 0.4 (0.8-1.8); Alk Phos 184 U/L (50-136); Anion Gap 2 mmol/L (6-16); Bilirubin, Total 0.5 mg/dL (0.1-1.0); Blood Urea Nitrogen 28 mg/dL (8-24); Bun/Creatinine Ratio 36.8 (12.0-20.0); CO2, Blood 31 mmol/L (21-32); Calcium, Blood 7.3 mg/dL (8.5-10.1); Chloride, Blood 103 mmol/L (98-108); Creatinine, Blood 0.76 mg/dL (0.60-1.20); Globulin, Blood 4.4 g/dL (2.2-4.0); Glomerular Filtration Rate >60 (60-); Glucose, Blood 172 mg/dL (70-99); Magnesium, Blood 2.6 mg/dL (1.6-2.4); Phosphorus, Blood 4.6 mg/dL (2.5-4.9); Potassium, Blood 5.1 mmol/L (3.5-5.5); Sodium, Blood 136 mmol/L (136-145); Total Protein, Blood 6.2 g/dL (6.4-8.2)
[2020-11-10 05:07] LABS: Alanine Aminotransfer (ALT/SGP 174 U/L (12-78)
[2020-11-10 05:24] LABS: Aspartate Aminotrans (AST/SGOT 85 U/L (12-37)
--- NOTE | 2020-11-10 06:34 | NUR ---
SHIFT SUMMARY PT REMAINS INTUBATED, SEDATED, & PARALYZED. VENT AC: 28/330/18/75%. LUNG SOUNDS CLEAR/DIM, SCANT SECRETIONS VIA ETT. O2 SATS REMAINED >94%, TOLERATED REPOSITIONING WELL. BED BATH COMPLETED. PROPOFOL 65MCG/KG/MIN, PRECEDEX 0.3MCG/KG/HR, NIMBEX 1.5MCG/KG/MIN, FENTANYL 100MCG/HR. BICARB @ 50ML/HR. TUBE FEED REMAINS AT GOAL WITH RESIDUALS OF 300-400ML. HR AFIB WITH RATE IN 110-140'S. BLOOD PRESSURES WERE HYPERTENSIVE AT 170-190'S/90'S, PROPOFOL AND PRECEDEX INCREASED AND BP DROPPED TO 150'S/80'S. CRITICAL ABG pH OF 7.16 BUT IMPROVED. TEMP TANNER DRAINING ENRIQUE URINE TO GRAVITY. NO BOWEL MOVEMENT. WILL GIVE REPORT TO ONCOMING RN.
--- NOTE | 2020-11-10 08:43 | NUR ---
CARE OF PT ASSUMED AT 0700. PT SEDATED ON PROPOFOL AT 65MCG, PRECEDEX AT 0.3MCG FOR MECH VENT. PT ALSO ON NIMBEX AT 1.5MCG FOR VENT TOLERENCE. TO4 4/. PT IS NOT BREATHING OVER VENT, NO GAG, NO COUGH, NO SWALLOW. NO MOVEMENT NOTED. PT IS UNRESTRAINED. BP STABLE. PT IN AFIB W RATE 100-120. SATS MAINTAINING OVER 90%, AROUND 93% ON 75% FIO2. OGT RESISDUALS HIGHER TODAY AT 100CC.
--- NOTE | 2020-11-10 10:40 | NUR ---
BIS MONITOR AVAILABLE. BIS SHOWING 80. PRECEDEX INCREASED TO 0.5MCG AT 1000. BIS NOW READING IN 40'S. PT TOLERATING TURNS TODAY. SATS >90%.
--- NOTE | 2020-11-10 11:15 | NUR ---
BIS 38, BP TRENDING DOWN, PRECEDEX RETURNED TO 0.3MCG
--- NOTE | 2020-11-10 12:00 | NUR ---
DR DUGAN AT BEDSIDE TO SEE PT, FULL UPDATE GIVEN. PT TO BE PRONED AFTER ECHO WHICH IS BEING COMPLETED NOW.
--- NOTE | 2020-11-10 12:25 | NUR ---
ECHO COMPLETE. SATS 85%, FIO2 INCREASED TO 100% PER DR DUGAN. PT TO HAVE CHEST XRAY PRIOR TO PRONING.
--- NOTE | 2020-11-10 12:56 | NUR ---
Echocardiogram completed.
[2020-11-10 13:36] LABS: Bicarbonate Venous 25.9 mmol/L (24.0-30.0); PCO2 Venous 78 mmHg (38-42); PO2 Venous 59 mmHg (38-42); pH Blood Venous 7.22 (7.34-7.37)
--- NOTE | 2020-11-10 13:44 | NUR ---
PT PRONED AT 1330 W TWO RN'S, ONE LIBRARY CIRCULATION CLERK, AND ONE RT. PT TOLERATED TURN WELL. SATS 94%. VBG DRAWN; RESULTS GIVEN TO DR DUGAN. SPENSER RT ADVANCED ETT BY 1CM PRIOR TO TURNING. CHEST XRAY COMPLETED PRIOR TO TURNING.
--- NOTE | 2020-11-10 16:04 | NUR ---
PT REPOSITIONED IN PRONE POSITION. TUBE FEEDING DECREASED TO NEW GOAL RATE OF 15MLS/HR
--- NOTE | 2020-11-10 16:11 | NUR ---
PICC LINE IS MALPOSITIONED PER CHEST XRAY. PER DR DUGAN; CONT TO USE PICC LINE FOR NOW, PICC LINE TO BE REPLACED TOMORROW WHEN PT IS UN-PRONED. SENIOR PARALEGAL NOTIFIED.
--- NOTE | 2020-11-10 17:59 | NUR ---
pt improving , son into visit will continue supporting son through his potential recovery. If he has to go home for abit will keep hism updated regularly. if pt improves mor will start doing some phone calls more otern so son can speak to him it may enhance his recovery .
--- NOTE | 2020-11-10 18:21 | NUR ---
BIS 60-70, PT HYPERTENSIVE. PRECEDEX INCREASED TO 0.5MCG. PT W LOW U/O THIS SHIFT 230CC TOTAL, DESPITE LASIX. DR DUGAN NOTIFIED, WILL CONT TO MONITOR FOR NOW ONLY.
--- NOTE | 2020-11-10 18:31 | NUR ---
TOF REMAINS 4/4, PT IS ADEQUATELY PARALYZED; PT DOES NOT BREATH OVER VENT, PT IS SYNCHRONIS WITH VENT, PT HAS NO COUGH, GAG, SWALLOW. FIO2 HAS BEEN TITRATED DOWN TO 80%. PEEP AT 16. PROPOFOL HAS REMAINED AT 65MCG T/O SHIFT, FENTANYL REMAINS AT 100MCG/HR T/O SHIFT. BICARB GTT AT 50CC/HR.
--- NOTE | 2020-11-10 19:33 | NUR ---
REPORT RECEIVED, CARE ASSUMEND
--- NOTE | 2020-11-10 20:25 | NUR ---
ASSESSMENT DONE AND NOTED IN FLOWSHEET. TOF /4 ON 5. BIS @ 45. PT SEDATED ON VENT. GTTS PER FLOWSHEET. PT REMIANS IN PRONE POSITION-PLAN CHANGE AT 2200. CONTINUE ASSESSMENT AND CARE.
--- NOTE | 2020-11-10 21:16 | NUR ---
FAMILY UPDATE SON, OPAL BRASWELL, CALLED IN FOR [id number] REMOVE PT FROM PRONE POSITION AT 2200-PT REMAINSA ON VENT SEDATED AND PARALYZED-OVERNIGHT.
--- NOTE | 2020-11-10 22:49 | NUR ---
ASSESS PT UNPRONED. DECREASED BP'S DECREASED SEDATION PER FLOWSHEET. TO4 IS 4 OUT OF 4 ON 6. BIS @ 30. CONTINUE TO WEAN SEDATION SEE FLOWSHEET. FOR BIS OF 40.
--- NOTE | 2020-11-11 00:50 | NUR ---
ASSESS PT REMAINS SEDATED, ON PROPOFOL @ 40 MCG/KG/MIN, PRECEDEX @ 0.3 MCK/KG/HR, FENT @ 100 MCK/HR, BIS 40. PARALYZED ON NIMBEX 1.5 MCK/KG/MIN, TO4 4 OUT OF 4 AT 5. LEVOPHED @ 2 MCG/MIN. BICARB GTT @ 50 ML/HR, NS TKO. SEE FLOWSHEET FOR VITALS. VENT SETTING A/C, V/C RATE 28, TV 330, PEEP 16, FIO2 80%. PT IS NOT BREATHING OVER VENT, NO COUGH, NO GAG NOTED, NO SECREATIONS SXNED. CONTINUE ASSESSMENT AND CARE.
[2020-11-11 03:54] LABS: Hematocrit 40.6 % (37.0-53.0); Hemoglobin 12.7 g/dL (13.5-17.5); Mean Corpuscular HGB Conc 31.3 g/dL (31.5-36.5); Mean Corpuscular Volume 99 fL (80-100); Mean Platelet Volume 9.8 fL (9.1-12.4); Platelet Count 387 K/mm3 (150-400); RDW Coefficient Variation 14.8 % (11.7-14.2); RDW Standard Deviation 54.6 fL (35.1-46.3); White Blood Cell Count 16.74 K/mm3 (4.00-11.30)
--- NOTE | 2020-11-11 04:07 | NUR ---
ASSESS PT REMAINS PARALYZED AND SEDATED-SEE FLOWSHEET FOR GTT RATES. INCREASED SEDATION DUE TO INCREASED HR, BP AND BIS. AM LABS SENT. TO4, 4 OUT OF 4 @ 5. VITALS PER FLOWSHEET. NO CHANGE IN RESPIRATORY. CONTINUE ASSESSMENTS AND CARE.
[2020-11-11 04:12] LABS: Alanine Aminotransfer (ALT/SGP 184 U/L (12-78); Albumin, Blood 1.7 g/dL (3.4-5.0); Albumin/Globulin Ratio 0.5 (0.8-1.8); Alk Phos 152 U/L (50-136); Anion Gap 1 mmol/L (6-16); Aspartate Aminotrans (AST/SGOT 104 U/L (12-37); Bilirubin, Total 0.4 mg/dL (0.1-1.0); Blood Urea Nitrogen 31 mg/dL (8-24); Bun/Creatinine Ratio 42.6 (12.0-20.0); CO2, Blood 34 mmol/L (21-32); Calcium, Blood 7.3 mg/dL (8.5-10.1); Chloride, Blood 102 mmol/L (98-108); Creatinine, Blood 0.73 mg/dL (0.60-1.20); Globulin, Blood 3.6 g/dL (2.2-4.0); Glomerular Filtration Rate >60 (60-); Glucose, Blood 194 mg/dL (70-99); Magnesium, Blood 2.3 mg/dL (1.6-2.4); Phosphorus, Blood 3.1 mg/dL (2.5-4.9); Potassium, Blood 4.8 mmol/L (3.5-5.5); Sodium, Blood 137 mmol/L (136-145); Total Protein, Blood 5.3 g/dL (6.4-8.2)
[2020-11-11 04:21] LABS: BAND PERCENT MAN 7 % (0-8); BASOPHILS PERCENT MAN 0 % (0-2); EOSINOPHILS ABSOLUTE MAN 0.33 K/mm3 (0.00-0.68); EOSINOPHILS PERCENT MAN 2 % (0-6); LYMPHOCYTES ABSOLUTE MAN 0.66 K/mm3 (0.84-5.20); LYMPHOCYTES PERCENT MAN 4 % (21-46); METAMYELOCYTE PERCENT MAN 3 % (0-0); MONOCYTES ABSOLUTE MAN 0.16 K/mm3 (0.16-1.47); MONOCYTES PERCENT MAN 1 % (4-13); MYELOCYTE PERCENT MAN 3 % (0-0); NEUTROPHILS ABSOLUTE MAN 14.56 K/mm3 (1.96-9.15); SEG NEUTROPHILS PERCENT MAN 80 % (41-73); TOTAL CELLS COUNTED 100
[2020-11-11 05:18] LABS: PCO2 Arterial 81.2 mmHg (35-45); PO2 Arterial 68.7 mmHg (80-100); pH Blood Arterial 7.26 (7.35-7.45)
--- NOTE | 2020-11-11 06:42 | NUR ---
END OF SHIFT PT REMAINS ON VENT A/C V/C RATE 28, TV 330, PEEP 16, FIO2 70. AM ABG NOTED AND CALLED TO DR. POSADAS GTT PLACED ON HOLD PER MD ORDER, NO VENT CHANGES AT THIS TIME. BS: CLEAR, EVEN, DECREASED T/O. NO COUGH, NO GAG WITH SXN OR ORAL CARE. NIMBEX @ 1.5- TO4 4 OUT 0F 4 @ LEVEL 6, 0 OUT OF 4 @ LEVEL 4. SEDATION ON BIS MONITO CURRENTLY 35-45 ON PRECEDEX, PROPOFOL, FENT GTTS, RATES NOTED IN FLOWSHEET. LEVO INFUSING FOR BP SUPPORT. ALL VITALS NOTED IN FLOWSHEET. CONTINUE ASSESSMENTS AND CARE TILL REPORT OFF TO DAYSHIFT BILLY.
--- NOTE | 2020-11-11 08:15 | NUR ---
LEVOPHED GTT PLACED ON SB
--- NOTE | 2020-11-11 08:32 | NUR ---
ASSUMED CARE OF PT THIS AM. ,PT. REMAINS SEDATED AND ON PARALYTIC. PT. CURRENTLY ON VENT SETTINGS OF AC ,PEEP 16 AND FIO2 80%. PT NOT CURRENTLY OVER BREATHING THE VENT WITH NIMBEX AT 1 MCG/KG/MIN. TRAIN OF FOUR 4/4 CURRENTLY NIMBEX TITRATED TO 1.5 MCG/KG/MIN. BIS OF 50 PT. REMAINS SEDATED WELL WITH PROPOFOL, PRECEDEX AND FENTANYL. OG TUBE IN PLACE, TF INFUSING, BT HYPOACTIVE. PT. HAS TANNER TEMP PROBE DRAINING TO GRAVITY, AFEBRILE. LEVOPHED GTT INFUSING FOR BLOOD PRESSURE SUPPORT.
--- NOTE | 2020-11-11 10:42 | NUR ---
PT TURNED TO LEFT SIDE, PT. SPO2 DECREASED TO 87%, FIO2 INCREASED TO 90% RT NOTIFIED.
--- NOTE | 2020-11-11 12:02 | NUR ---
PICC LINE WITHDRAWN 5CM PER DR. ROCK, CURRENTLY 10CM OUT. CHEST XRAY DONE, CONFIRMED BY DR. ROCK.
--- NOTE | 2020-11-11 14:31 | NUR ---
PT BP TRENDING DOWN WITH INCREASED SEDATION. LEVOPHED GTT RESTARTED AT 1MCG/KG/MIN.
--- NOTE | 2020-11-11 15:26 | NUR ---
SEDATION VACATION NIMBEX AND PROPOFOL PLACED ON STAND BY FOR NEURO EVAL. PT. RESP EFFORT INCREASED SIGNIFICANTLY, RATE UP IN TO THE HIGH 30S, HR ELEVATED TO THE LOW 100S AND BP INCREASED TO 184/90 (119). SEDATION OFF FOR 30 MIN, PT DID NOT WAKE ENOUGH TO FOLLOW COMMANDS WHEN ASKED, SEDATION RESTARTED DUE TO HEMODYNAMIC INSTABILITY.
--- NOTE | 2020-11-11 17:13 | NUR ---
SHIFT SUMMARY PT. REMAINS SEDATED AND PARALYZED. DURING SEDATION VACATION TODAY PT WORK OF BREATHING INCREASED SIGNIFICANTLY AND BP AND HR INCREASED WELL. PER DR. ROCK PEEP INCREASED TO 18, AND FIO2 AT 90%. PT. RESEDATED AND PARALYZED. PT. SON IN TO VISIT TODAY. UPDATED ON PT CONDITION.
--- NOTE | 2020-11-11 19:22 | NUR ---
REPOERT RECEIVED, CARE ASSUMED. PT REMIANS ON VENT, SEDATED, PARALYZED ON NIMBEX GTT @ 2. VITALS AND GTTS NOTED IN FLOWSHEET. CONTINUE ASSESSMENT AND CARE.
--- NOTE | 2020-11-11 20:37 | NUR ---
ASSESS: INCREASED BP, INCREASE, HR 133, BIS 64, NO COUGH, NO GAG, PT NOT BREATHING OVER VENT. TO4- 4 OUT OF 4 ON SENS 5. INCREASE SEDATION, LEVO OFF. CONTINUE ASSESSMENT.
--- NOTE | 2020-11-11 20:56 | NUR ---
MD NOTIFICATION DR. ROCK NOTIFIED- PT INCREASED HR, INCREASED BP, REQUIRED INCREASED SEDATION, LEVO STOPPED. PT GUPPY BREATHING ON VENT. -MD WILL PLACE ORDERS NOW-MACHINE DYER NOTIFIED. CONTINUE ASSESSMENTS AND CARE.
--- NOTE | 2020-11-11 21:51 | NUR ---
MD NOTIFICATION DR. ROCK NOTIFIED-CARDIZEM GTT STARTED-HR IMPROVING-BP REMAINS INCREASED, SBP > 200'S. NEW ORDERS PLACED. CONTINUE ASSESSMENT AND CARE.
--- NOTE | 2020-11-11 22:07 | NUR ---
MEDS ORDERED BOTH NITRO PASTE (2INCHES) AND HYDROLAZINE GIVEN IV NOW PER DR. SANCHEZ ORDER TO GIVE BOTH NOW.
--- NOTE | 2020-11-11 22:34 | NUR ---
MD NOTIFICATION DR. ROCK NOTIFIED- DR. ROCK AT BEDSIDE-NEW ORDERS PLACED FOR INCREASED BP'S, INCREASED HR. BIS 56 @ THE TIME-MD ORDER OK TO INCREASE PRECEDEX TO 1.4 MCG/KG/HR. CONTINUE ASSESSMENTS AND CARE.
--- NOTE | 2020-11-11 23:46 | NUR ---
ASSESS FULL SHIFT ASSESSMENT DONE AND NOTED IN FLOWSHHET. VITALS AND GTTS NOTED IN FLOWSHEET. TO4 = 4 OUT OF 4 AT LEVEL 6. 0 OUT OF 4 AT LEVEL 4. BIS 35-45. PT REMAINS GUPPY BREATHING ON VEMT-SEDATION PER FLOWSHEET. NIMBEX REMIANS @ 2. BPS INCREASED- NITRO PASTE IS ON LEFT UPPER CHEST, NICARDIPINE HAS BEEN STARTED. INCREASED HR-CARDIZEM GTT WAS STARTED. VENT SETTING REMAIN UNCHANGED FROM BEGINING OF SHIFT. BS: CLEAR DECREASED T/O. NO COUGH, NO GEG NOTED. CONTINUE ASSESSMENTS AND CARE.
--- NOTE | 2020-11-12 02:53 | NUR ---
ASSESS BP DECREASING, HR DECREASING. NICARDIPINE GTT OFF PER FLOWSHEET. WEANING CARDIZEM GTT PER FLOWSHEET, REMOVED NITRO PASTE NOW.
[2020-11-12 03:26] LABS: Hematocrit 41.6 % (37.0-53.0); Mean Corpuscular HGB Conc 31.3 g/dL (31.5-36.5); Mean Corpuscular Volume 99 fL (80-100); Mean Platelet Volume 9.7 fL (9.1-12.4); NRBC ABSOLUTE 0.02 K/mm3 (0.00-0.02); NRBC Auto 0.1 /100 WBC (0.0-0.2); Platelet Count 351 K/mm3 (150-400); RDW Coefficient Variation 15.1 % (11.7-14.2); RDW Standard Deviation 56.2 fL (35.1-46.3); Red Blood Cell Count 4.19 M/mm3 (4.30-5.90)
[2020-11-12 03:45] LABS: Albumin, Blood 1.6 g/dL (3.4-5.0); Albumin/Globulin Ratio 0.5 (0.8-1.8); Alk Phos 143 U/L (50-136); Anion Gap 2 mmol/L (6-16); Aspartate Aminotrans (AST/SGOT 185 U/L (12-37); Bilirubin, Total 0.4 mg/dL (0.1-1.0); Blood Urea Nitrogen 41 mg/dL (8-24); Bun/Creatinine Ratio 47.1 (12.0-20.0); CO2, Blood 35 mmol/L (21-32); Chloride, Blood 100 mmol/L (98-108); Creatinine, Blood 0.87 mg/dL (0.60-1.20); Globulin, Blood 3.5 g/dL (2.2-4.0); Glomerular Filtration Rate >60 (60-); Glucose, Blood 201 mg/dL (70-99); Magnesium, Blood 2.4 mg/dL (1.6-2.4); Phosphorus, Blood 3.1 mg/dL (2.5-4.9); Potassium, Blood 4.9 mmol/L (3.5-5.5); Sodium, Blood 137 mmol/L (136-145); Total Protein, Blood 5.1 g/dL (6.4-8.2)
[2020-11-12 04:10] LABS: Alanine Aminotransfer (ALT/SGP 269 U/L (12-78)
[2020-11-12 04:19] LABS: PCO2 Arterial 87.7 mmHg (35-45); PO2 Arterial 75.4 mmHg (80-100); pH Blood Arterial 7.24 (7.35-7.45)
[2020-11-12 04:24] LABS: BAND PERCENT MAN 10 % (0-8); BASOPHILS PERCENT MAN 0 % (0-2); EOSINOPHILS ABSOLUTE MAN 0.21 K/mm3 (0.00-0.68); EOSINOPHILS PERCENT MAN 1 % (0-6); LYMPHOCYTES ABSOLUTE MAN 0.63 K/mm3 (0.84-5.20); LYMPHOCYTES PERCENT MAN 3 % (21-46); METAMYELOCYTE ABSOLUTE MAN 0.42 K/mm3 (0.00-0.00); METAMYELOCYTE PERCENT MAN 2 % (0-0); MONOCYTES ABSOLUTE MAN 0.21 K/mm3 (0.16-1.47); MONOCYTES PERCENT MAN 1 % (4-13); MYELOCYTE ABSOLUTE MAN 0.42 K/mm3 (0.00-0.00); MYELOCYTE PERCENT MAN 2 % (0-0); NEUTROPHILS ABSOLUTE MAN 19.11 K/mm3 (1.96-9.15); SEG NEUTROPHILS PERCENT MAN 81 % (41-73); TOTAL CELLS COUNTED 100
--- NOTE | 2020-11-12 06:37 | NUR ---
END OF SHIFT PT CONTINUES ON VENT A/C V/C RATE 28, TV 330, PEEP 18. ABG CRITICAL THIS AM-SEE LABS. MD NOTIFIED-NO CHANGES AT THIS TIME. CONTINUE NIMBEX GTT @ 2-TOF 4 OUT 0F 4 @ SENS 6. 0 OUT OF 0 @ SENS 4. BIS 35-40 WITH PROPOFOL, PRECEDEX, FENT INFUSING- SEE FLOWSHEET FOR RATES. LEVO FOR BP SUPPORT. CONTINUE BICARB @ 100 ML/HR PER MD ORDER. CONTINUE ASSESSMENTS AND CARE TILL REPORT OFF TO DAYSHIFT RN.
--- NOTE | 2020-11-12 08:30 | NUR ---
ASSUMED CARE REPORT FROM MARIA GUADALUPE CERVANTES. PT INTUBATED, SEDATED, AND PARALYZED. PROPOFOL, PRECEDEX, AND FENTANYL GTT. BIS 30'S AT SHIFT CHANGE, WILL TITRATE PROPOFOL DOWN. NIMBEX GTT, TOF 0/4, PT COMPLIANT c VENT, WILL TITRATE DOWN. NO COUGH/GAG/SWALLOW REFLEX. PUPILS PINPOINT. LUNGS DIM THROUGHOUT. SCANT SECRETIONS THROUGH ETT. ABD ROUND, SOFT, BT HYPOACTIVE. TUBE FEEDS AT GOAL, NO RESIDUALS. TANNER PATENT, DRAINING ENRIQUE URINE TO GRAVITY. LEVO GTT FOR MAP>65. AFLUTTER ON MONITOR, RATE 50-70'S. PICC TO RUE, POWERGLIDE TO LUE, DRESSINGS C/D/I. WILL CONTINUE TO MONITOR.
--- NOTE | 2020-11-12 17:20 | NUR ---
SHIFT SUMMARY PT REMAINS INTUBATED AND SEDATED. VENT SETTINGS AC 28/330/20/100%. LUNGS DIM THROUGHOUT. SCANT SECRECTIONS THROUGH ETT. NIMBEX GTT D/C'D THIS SHIFT. RR INCREASED, GASPING LIKE BREATHS OCCASIONAL ASYNCHRONOUS c VENT. SEDATION ADJUSTED, PRECEDEX REPLACED c VERSED GTT. TOLERATING WELL. PROPOFOL AND FENTANYL GTT CONTINUE. OCCASIONALLY OVERBREATHS VENT. HR VARIABLE THIS SHIFT. APPEARS TO INCREASE c DECREASE SEDATION, AFLUTTER, RATE 70-120 THIS SHIFT. BP ALSO LABILE. LEVO ON STANDBY SINCE THIS AM, OCCASIONALLY HTN. TUBE FEEDS CONTINUE, NO RESIDUALS. TANNER PATENT, DRAINING ENRIQUE URINE TO GRAVITY. PICC TO RUE, POWERGLIDE TO LUE, DRESSINGS C/D/I. WILL CONTINUE TO MONITOR UNTIL REPORT TO ONCOMING NURSE.
--- NOTE | 2020-11-12 19:20 | NUR ---
REPORT RECEIVED-CARE ASSUMED. GTTS NOTED IN FLOWSHEET. PT REMAINS ON VENT-AC/VC RATE 28/FIO2 100%, PEEP 20, TV 330. VITALS NOTED IN FLOWSHEET. CONTINUE ASSESSMENT AND CARE.
--- NOTE | 2020-11-13 00:22 | NUR ---
ASSESSED NO VENT CHANGES-PT REMAINS ON A/C V/C RATE 28, TV 330, PEEP 20, 100%.SXN SCANT AMT WHITE SECREATION-POSITIVE WEAK COUGH. NOTED PT BREATHING OVER VENT AT TIMES WITH SOME VENT ASYNCRONY AND ACCESSORY MUSCLE USAGE- INCREASED VERSED PER FLOWSHEET NOTED.CONTINE ASSESSMENTS AND CARE.
[2020-11-13 03:51] LABS: Hematocrit 34.8 % (37.0-53.0); Hemoglobin 11.3 g/dL (13.5-17.5); Mean Corpuscular HGB 32.2 pg (26.0-34.0); Mean Corpuscular HGB Conc 32.5 g/dL (31.5-36.5); Mean Corpuscular Volume 99 fL (80-100); Mean Platelet Volume 10.4 fL (9.1-12.4); Platelet Count 344 K/mm3 (150-400); RDW Coefficient Variation 14.7 % (11.7-14.2); RDW Standard Deviation 54.4 fL (35.1-46.3); Red Blood Cell Count 3.51 M/mm3 (4.30-5.90); White Blood Cell Count 18.44 K/mm3 (4.00-11.30)
[2020-11-13 04:28] LABS: Albumin, Blood 1.5 g/dL (3.4-5.0); Anion Gap Unable to Calculate mmol/L (6-16); Blood Urea Nitrogen 31 mg/dL (8-24); Bun/Creatinine Ratio 50.3 (12.0-20.0); CO2, Blood >45 mmol/L (21-32); Chloride, Blood 92 mmol/L (98-108); Creatinine, Blood 0.62 mg/dL (0.60-1.20); Glomerular Filtration Rate >60 (60-); Glucose, Blood 369 mg/dL (70-99); Phosphorus, Blood 1.8 mg/dL (2.5-4.9); Potassium, Blood 4.5 mmol/L (3.5-5.5); Sodium, Blood 136 mmol/L (136-145)
[2020-11-13 06:15] LABS: PO2 Arterial 99.5 mmHg (80-100); pH Blood Arterial 7.34 (7.35-7.45)
--- NOTE | 2020-11-13 06:15 | NUR ---
END OF SHIFT NOTE PT REMAINS ON VENT-NO CHANGES OVERNIGHT IN SETTINGS. SEDATED-VERSED WAS INCREASED OVERNIGHT FROM 5 TO 7 FOR VENT ASYNCRONY, INCREASED RR, AND GUPPY BREATHING. PROPOFOL REMAINS @ 60, FENT @ 100. CONTINUE BICARB GTT @ 75 ML/HR. CONTINUE ASSESSMENT AND CARE TILL REPORT OFF TO ONCOMING RN.
[2020-11-13 06:16] LABS: PCO2 Arterial 83.8 mmHg (35-45)
[2020-11-13 07:00] LABS: BAND PERCENT MAN 8 % (0-8); BASOPHILS PERCENT MAN 0 % (0-2); EOSINOPHILS ABSOLUTE MAN 0.73 K/mm3 (0.00-0.68); EOSINOPHILS PERCENT MAN 4 % (0-6); LYMPHOCYTES ABSOLUTE MAN 0.92 K/mm3 (0.84-5.20); LYMPHOCYTES PERCENT MAN 5 % (21-46); METAMYELOCYTE ABSOLUTE MAN 0.36 K/mm3 (0.00-0.00); METAMYELOCYTE PERCENT MAN 2 % (0-0); MONOCYTES ABSOLUTE MAN 0.18 K/mm3 (0.16-1.47); MONOCYTES PERCENT MAN 1 % (4-13); MYELOCYTE ABSOLUTE MAN 0.18 K/mm3 (0.00-0.00); MYELOCYTE PERCENT MAN 1 % (0-0); NEUTROPHILS ABSOLUTE MAN 16.04 K/mm3 (1.96-9.15); SEG NEUTROPHILS PERCENT MAN 79 % (41-73); TOTAL CELLS COUNTED 100
[2020-11-13 09:44] LABS: Vancomycin, Trough 5.8 ug/mL (5.0-10.0)
--- NOTE | 2020-11-13 11:00 | NUR ---
CARE ASSUMED PT RESTING QUIETLY IN BED ON THIS RN'S ARRIVAL, HR 100-120 AFLUTTER, BP STABLE, RESPIRATIONS EVEN AND UNLABORED, RR 20'S. DURING AM ASSESSMENTS, PT BECAME TACHYCARDIC WITH HR SUSTAINING 150-170 AFLUTTER AND BP 220/110. RESPIRATIONS BECAME LABORED, GUPPY BREATHING WITH ACCESSORY MUSCLE USE NOTED, PT ASYNCHRONOUS WITH VENT, SPO2 88%. SEDATION INCREASED, DOSES OF IVP FENTANYL AND ATIVAN ADMINISTERED, ATTEMPTED TO VAGAL PATIENT, ALL WITHOUT EFFECT. DR. ROCK NOTIFIED, NEW ORDERS, PRECEDEX RESUMED, PT PARALYZED WITH NIMBEX AT 1042, SEE MAR AND FLOW SHEET. PT CALMED AFTER NIMBEX, IS NOW SYNCHRONOUS WITH VENT, RR 28, SPO2 MID 90'S, PEAK PRESSURES 45. NO GUPPY BREATHING NOTED. LS CLEAR, DIMINISHED IN BASES, SMALL AMOUNT OF WHITE SECRETIONS FROM ETT. VENT AC 28, Vt 330, PEEP 20, FIO2 100%. HR AFLUTTER 140'S, BP HAS STABILIZED. ABD FIRM, BT HYPOACTIVE. TF INFUSING PER ORDERS, TANNER PATENT. GENERALIZED EDEMA NOTED, EXTREMS ELEVATED. PG, PICC, AND PERIPHERAL LINE PATENT.
--- NOTE | 2020-11-13 18:30 | NUR ---
END OF SHIFT ATTEMPTED TO TITRATE SEDATION DOWN D/T LOW BIS SCORE, PT'S HR AND BP INCREASED, RESEDATED WITH GOOD RESULTS. PROPOFOL 60MCG, PRECEDEX 0.3MCG, VERSED 7MG, FENTANYL ACCOUNTANT AUDITOR 100MCG, NIMBEX 2MCG, BICARB 50ML/HR. BIS 30, TOF 4/4 BUT PT IS TOLERATING VENT WELL WITHOUT ASYNCHRONY OR HIGH RR. HR 70'S AFLUTTER, BP 90'S/60'S WITH MAP 70'S, RR 28, SPO2 >95%, PEAK PRESSURE REMAINS 45. CURRENT VENT SETTINGS AC 28, Vt 330, FIO2 70%, PEEP 22, CHANGES MADE BY DR. ROCK. PT'S SON IVONNE IN TO VISIT THIS EVENING, UPDATED BY DR. ROCK AT BEDSIDE, SON AWARE OF POOR PROGNOSIS. SEE FLOW SHEET FOR DRIP TITRATIONS.
--- NOTE | 2020-11-13 20:04 | NUR ---
REPORT RECEIVED-CARE ASSUMED. FULL ASSESSMENT DOCUMENTED IN FLOWSHEET.
--- NOTE | 2020-11-14 02:53 | NUR ---
ASSESS PRECEDEX PLACED BACK ON DUE 2 INCREASED [id number], INCREASED BP'S, INCREASED PEAKS >40.
[2020-11-14 05:22] LABS: BASOPHILS ABSOLUTE AUTO 0.09 K/mm3 (0.00-0.23); BASOPHILS PERCENT AUTO 0 % (0-2); EOSINOPHILS ABSOLUTE AUTO 0.42 K/mm3 (0.00-0.68); EOSINOPHILS PERCENT AUTO 2 % (0-6); Hematocrit 36.5 % (37.0-53.0); Hemoglobin 11.2 g/dL (13.5-17.5); IMMATURE GRAN ABSOLUTE AUTO 2.07 K/mm3 (0.00-0.10); IMMATURE GRAN PERCENT AUTO 10 % (0-1); LYMPHOCYTES ABSOLUTE AUTO 0.57 K/mm3 (0.84-5.20); LYMPHOCYTES PERCENT AUTO 3 % (21-46); MONOCYTES ABSOLUTE AUTO 0.72 K/mm3 (0.16-1.47); MONOCYTES PERCENT AUTO 4 % (4-13); Mean Corpuscular HGB 30.9 pg (26.0-34.0); Mean Corpuscular HGB Conc 30.7 g/dL (31.5-36.5); Mean Corpuscular Volume 101 fL (80-100); Mean Platelet Volume 10.2 fL (9.1-12.4); NEUTROPHILS ABSOLUTE AUTO 16.29 K/mm3 (1.96-9.15); NEUTROPHILS PERCENT AUTO 81 % (41-73); Platelet Count 328 K/mm3 (150-400); RDW Coefficient Variation 14.6 % (11.7-14.2); RDW Standard Deviation 54.8 fL (35.1-46.3); Red Blood Cell Count 3.62 M/mm3 (4.30-5.90); White Blood Cell Count 20.16 K/mm3 (4.00-11.30)
[2020-11-14 05:41] LABS: Alanine Aminotransfer (ALT/SGP 149 U/L (12-78); Albumin, Blood 1.7 g/dL (3.4-5.0); Albumin/Globulin Ratio 0.5 (0.8-1.8); Alk Phos 104 U/L (50-136); Anion Gap 0 mmol/L (6-16); Aspartate Aminotrans (AST/SGOT 34 U/L (12-37); Bilirubin, Direct 0.1 mg/dL (0.0-0.3); Bilirubin, Indirect 0.3 mg/dL (0.1-0.7); Bilirubin, Total 0.4 mg/dL (0.1-1.0); Blood Urea Nitrogen 44 mg/dL (8-24); Bun/Creatinine Ratio 59.7 (12.0-20.0); CO2, Blood 42 mmol/L (21-32); Calcium, Blood 7.3 mg/dL (8.5-10.1); Chloride, Blood 98 mmol/L (98-108); Creatinine, Blood 0.74 mg/dL (0.60-1.20); Globulin, Blood 3.2 g/dL (2.2-4.0); Glomerular Filtration Rate >60 (60-); Glucose, Blood 127 mg/dL (70-99); Phosphorus, Blood 2.8 mg/dL (2.5-4.9); Potassium, Blood 4.5 mmol/L (3.5-5.5); Sodium, Blood 140 mmol/L (136-145); Total Protein, Blood 4.9 g/dL (6.4-8.2)
--- NOTE | 2020-11-14 05:49 | NUR ---
END OF SHIFT NOTE PT REMAINS ON VENT-NO CHANGES IN SETTINGS OVERNIGHT-A/C V/C RATE 28/PEEP 22/ TV 330/ FIO2 60%. BS REMIAN DECREASED AND CLEAR. SXN-NO SECREATIONS, NO COUGH, NO GAG. ATTEMPT TO WEAN PRECEDEX OVERNIGHT-RETURNED BACK TO 0.3 DUE TO INCREASED HR, INCREASED BP, INCREASED PEAKS 45. GTTS-FENT 100, PROPOFO; 60, PRECEDEX 0.3, BICARB 50, NIMBEX 2. TO4 - 4 OUT O 4 ON SENS 9, 0 OUT OF 4 ON SENS 6. BIS IN PLACE- CONTINUE TO ASSESS AND CARE TILL ONCOMING SHIFT REPORT OFF.
[2020-11-14 05:57] LABS: BAND PERCENT MAN 2 % (0-8); BASOPHILS PERCENT MAN 0 % (0-2); EOSINOPHILS PERCENT MAN 2 % (0-6); LYMPHOCYTES PERCENT MAN 4 % (21-46); METAMYELOCYTE PERCENT MAN 6 % (0-0); MONOCYTES PERCENT MAN 2 % (4-13); MYELOCYTE PERCENT MAN 3 % (0-0); NEUTROPHILS ABSOLUTE MAN 16.73 K/mm3 (1.96-9.15); SEG NEUTROPHILS PERCENT MAN 81 % (41-73); TOTAL CELLS COUNTED 100
[2020-11-14 09:22] LABS: Vancomycin, Trough 14.6 ug/mL (5.0-10.0)
--- NOTE | 2020-11-14 11:30 | NUR ---
CARE ASSUMED ASSESSMENTS COMPLETED, PT SEDATED AND PARALYZED WITH PROPOFOL 60MCG, PRECEDEX 0.3MCG, VERSED 7MG/HR, FENTANY 100MCG/HR, AND NIMBEX 2MCG. ADJUSTING SEDATION AND PARALYTIC TO ACHIEVE BIS 40-60, VENT COMPLIANCE, AND STABLE BP/HR. NO ASYNCHRONY NOTED AT THIS TIME, NO MOVEMENT. HR 70'S AFLUTTER, MAP 60'S. LS DIMINISHED, SCANT [place] SECRETIONS FROM ETT. VENT SETTINGS AC 28, Vt 330, PEEP 22, FIO2 60%, RR 28, SPO2 MID 91-93%, PEAK PRESSURE MID 40'S. ABD REMAINS FIRM, BT HYPO, PLAN FOR BOWEL CARE MEDS TODAY. TF INFUSING PER ORDERS. TANNER PATENT WITH GREEN URINE, PLAN TO DISCUSS DIURETICS WITH DR. Lyles/T [place] AND SEVERELY POSITIVE I&O. AM CARES COMPLETED. AT 1130 PT'S SPO2 DECREASED TO 86% WITHOUT APPARENT PROVOCATION, FIO2 INREASED TO 75% WITH SPO2 NOW MID 90'S.
--- NOTE | 2020-11-14 14:33 | NUR ---
VENT SETTINGS CHANGE DR. KOO AT BEDSIDE, VENT CHANGED TO AC 28, Vt 330, PEEP 16, FIO2 75%. SPO2 96%, RR 28, PEAK PRESSURE 31. PLAN TO PRONE PER DR. FARRAR.
--- NOTE | 2020-11-14 16:04 | NUR ---
UPDATE: PRONE PT PRONED AT 1500, SPO2 DESAT TO 78%. VENT SETTINGS CHANGED PER DR. FARRAR TO AC 28, Vt 330, PEEP 20, FIO2 100%. SPO2 NOW 97%, PLAN TO DECRESE PEEP AND FIO2 PT TOLERATES. VSS T/O REPOSITIONING. DRIP RATES UNCHANGED.
--- NOTE | 2020-11-14 17:15 | NUR ---
UPDATE PT TOLERATING PRONE AND VENT SETTINGS WELL, SPO2 96%. PEEP DECREASED TO 16, FIO2 TO 85% PER DR. FARRAR. SPO2 NOW 93%, PEAK PRESSURE 38, RR 28.
--- NOTE | 2020-11-14 20:00 | NUR ---
ASSUMED CARE OF PT AT 1915. REPORT RECEIVED AT BEDSIDE. PT PRESENTS IN BED. INTUBATED AND IN PRONE POSITION. AC/VC 28, T/V 330, PEEP 18, FIO2 85 PERCENT. HAVE DECREASED THIS TO 80 PERCENT. PT MAINTAINS > 90 PERCENT WITH THIS. PROPOFOL, VERSED, PRECEDEX DRIP FOR SEDATION. ON FENTANYL DRIP AT 100 MCG/HOUR. NIMBEX ALSO IN USE FOR VENT COMPLIANCE. BIS MONITORING IN PLACE. WILL REVIEW CHART AND PLAN OF CARE FOR THIS PT.
--- NOTE | 2020-11-14 23:45 | NUR ---
THREE PERSON ASSIST TO CHANGE PATIENT'S POSITION IN PRONE POSITION. RESPIRATORY CARE ASSISTS. PT REMAINS ON NIMBEX DRIP. MAINTAINS 40-50 ON BIS MONITORING. NO S/S DISTRESS. HAVE DECREASED SEDATION SLOWLY TO MAINTAIN APPOROPRATE SEDATION. DR FARRAR WAS IN UNIT AND HAS REQUESTED TO HAVE PT PRONE FOR AT LEAST 16 HOURS. DID DISCUSS THIS WITH RESPIRATORY CARE. THIS WOULD PUT EARLIEST UNPRONING TO 0700 AM.
[2020-11-15 04:34] LABS: PCO2 Arterial 87.6 mmHg (35-45); PO2 Arterial 98.3 mmHg (80-100); pH Blood Arterial 7.32 (7.35-7.45)
[2020-11-15 04:46] LABS: Hematocrit 35.9 % (37.0-53.0); Hemoglobin 11.1 g/dL (13.5-17.5); Mean Corpuscular HGB 31.3 pg (26.0-34.0); Mean Corpuscular HGB Conc 30.9 g/dL (31.5-36.5); Mean Corpuscular Volume 101 fL (80-100); Mean Platelet Volume 10.3 fL (9.1-12.4); NRBC ABSOLUTE 0.02 K/mm3 (0.00-0.02); NRBC Auto 0.1 /100 WBC (0.0-0.2); Platelet Count 291 K/mm3 (150-400); RDW Coefficient Variation 14.5 % (11.7-14.2); Red Blood Cell Count 3.55 M/mm3 (4.30-5.90); White Blood Cell Count 18.88 K/mm3 (4.00-11.30)
[2020-11-15 05:00] LABS: Albumin, Blood 1.7 g/dL (3.4-5.0); Anion Gap 1 mmol/L (6-16); Blood Urea Nitrogen 47 mg/dL (8-24); Bun/Creatinine Ratio 58.8 (12.0-20.0); CO2, Blood 41 mmol/L (21-32); Calcium, Blood 7.1 mg/dL (8.5-10.1); Chloride, Blood 102 mmol/L (98-108); Glomerular Filtration Rate >60 (60-); Glucose, Blood 117 mg/dL (70-99); Phosphorus, Blood 3.1 mg/dL (2.5-4.9); Potassium, Blood 4.2 mmol/L (3.5-5.5); Sodium, Blood 144 mmol/L (136-145)
[2020-11-15 05:44] LABS: BAND PERCENT MAN 13 % (0-8); BASOPHILS PERCENT MAN 0 % (0-2); EOSINOPHILS ABSOLUTE MAN 0.37 K/mm3 (0.00-0.68); EOSINOPHILS PERCENT MAN 2 % (0-6); LYMPHOCYTES ABSOLUTE MAN 0.56 K/mm3 (0.84-5.20); LYMPHOCYTES PERCENT MAN 3 % (21-46); METAMYELOCYTE ABSOLUTE MAN 0.56 K/mm3 (0.00-0.00); METAMYELOCYTE PERCENT MAN 3 % (0-0); MONOCYTES ABSOLUTE MAN 0.18 K/mm3 (0.16-1.47); MONOCYTES PERCENT MAN 1 % (4-13); MYELOCYTE ABSOLUTE MAN 0.75 K/mm3 (0.00-0.00); MYELOCYTE PERCENT MAN 4 % (0-0); NEUTROPHILS ABSOLUTE MAN 16.42 K/mm3 (1.96-9.15); SEG NEUTROPHILS PERCENT MAN 74 % (41-73); TOTAL CELLS COUNTED 100
--- NOTE | 2020-11-15 07:20 | NUR ---
HAVE REPOSITIONED PT WITH USE OF CEILING LIFT AND THREE PERSONS. PT CONTINUES ON NIMBEX DRIP AND HAVE TITRATED SEDATION TO MAINTAIN 40-60. FENTANYL DRIP REMAINS AT 100 MCG'S PER HOUR. HAS HAD SMALL SMEARS OF LOOSE BROWN STOOL. HAVE CONSIDERED USE OF DIGNISHIELD. REPORT GIVEN TO ONCOMING RN .
--- NOTE | 2020-11-15 09:50 | NUR ---
CARE OF PT ASSUMED AT 0700. PT UNPRONED AT 0900 WITH 2 RN ASSIST AND 1 RT ASSIST. PT STACIE TURN WELL. SATS ARE 90% ON 75% FIO2 (DECREASED FROM 80% AT 0800 BY RT. PEEP IS AT 18. PT IS ON NIMBEX AT 2MCG. PT HAS TOF 4/4 BUT IS ADEQUATELY PARALYZED. PT IS SYNCHRONIZED W VENT, NOT BREATHING OVER VENT, NO GAG, NO COUGH, NO SWALLOW, NO MOVEMENT OF LIMBS. PT ON PROPOFOL AT 50MCG, FENT AT 100MCG/HR, VERSED AT 5MG/HR. PRECEDEX WAS ON STANDBY, RESTARTED AT 0.3MCG FOR BIS 60-70. BIS IS NOW IN HIGH 30'S, MID 40'S. PT WITH LARGE AMT OF LIQUID STOOL, DARK BROWN. FLEXISEAL PLACED. 5CC RESIDUAL TO TUBE FEEDS WHICH ARE AT GOAL. BP STABLE. PT IN AFIB W CONTROLLED W RATE 70-80'S.
--- NOTE | 2020-11-15 11:28 | NUR ---
PT'S SON UPDATED. PEEP DECREASED TO [address] FARRAR.
[2020-11-15 12:08] LABS: Source, Urine Catheter
--- NOTE | 2020-11-15 12:08 | NUR ---
VERSED PLACED ON STANDBY AT [address] FARRAR. PT VERY HYPERTENSIVE 218/110, BIS 70'S, UP TO [address] SPEAKING TO PT. DR FARRAR NOTIFIED. VERSED STARTED AT 2.5MG/HR PER DR FARRAR.
[2020-11-15 12:16] LABS: Appearance, Urine Hazy (Clear); Bilirubin, Urine Neg (Neg); Blood, Urine 5+ (Neg); Color, Urine Yellow (P-Yellow); Glucose Qualitative, Urine Neg (Neg); Ketones, Urine Neg (Neg); Leukocyte Esterase, Urine 1+ (Neg); Nitrite, Urine Neg (Neg); Protein, Urine 2+ (Neg); Specific Gravity, Urine 1.015 (1.003-1.022); Urobilinogen, Urine NORM (Normal)
[2020-11-15 12:24] LABS: Bacteria Few /hpf; Red Blood Cells, Urine TNTC /hpf (0-2); Squamous Epithelial Cells Rare /hpf (Few)
--- NOTE | 2020-11-15 12:56 | NUR ---
BP 229/97, BIS HAS LOWERED TO LOW 50'S. DR FARRAR NOTIFIED. VERSED TO BE PLACED BACK AT 5MG/HR PER DR FARRAR.
--- NOTE | 2020-11-15 14:35 | NUR ---
SATS DROPPED TO 83% BRIEFLY WHEN PT TURNED TO RIGHT SIDE. PT'S RESP ALSO INCREASED TO 34 DURING TURN. SATS BETWEEN 87-90%, RT NOTIFIED. BIS HAS DECREASED DOWN TO 30'S AFTER VERSED INCREASED TO 5MG/HR, AND PRECEDEX INCREASED TO 0.4MCG. HEART RATE IMPROVED, 90-120 (IT HAD BEEN 120-140). BP HTN IMPROVING WELL.
--- NOTE | 2020-11-15 17:07 | NUR ---
PT PRONED W TWO RN, 1 COMMUNICATION ASSISTANT, AND 1 RT ASSIST. PT DESATURATED TO 83% FOR A COUPLE OF MIN POST PRONE. FIO2 INCREASED TO 100%. PT SATS QUICKLY RAISED TO 93%. FIO2 NOW 90%. BED PLACED IN REVERSE TREND. SMALL CRACK/TEAR IN SKIN NOTED JUST POSTERIOR TO RECTUM IN INTERGLUTEAL CLEFT, BARRIER CREAM PLACED.
--- NOTE | 2020-11-15 18:26 | NUR ---
BIS ~40'S, TOF HAS BEEN 4/4 T/O SHIFT. PT REMAINS ADEQUATELY PARALYZED. NIMBEX AND SEDATION NOT STOPPED (TO CHECK NEURO STATUS) TODAY PER DR FARRAR PT IS NOT STABLE ENOUGH. FIO2 IS 90% W SATS 94%, PEEP AT 16. NIMBEX AT 2MCG, PRECEDEX AT 0.4MCG, VERSED AT 5MG/HR, PROPOFOL AT 50MCG, FENT AT 100MCG/HR.
--- NOTE | 2020-11-15 20:00 | NUR ---
ASSUMED CARE OF PT AT 1915. REPORT RECEIVED. PT IN BED PRONE. VENT AC 28, 330, FIO2 90 PERCENT FIO2 18. PT TOLERATING THIS WELL WITH PROPOFOL, FENTANYL DRIP, PROPOFOL, VERSED, AND PRECEDEX. HAVE MET WITH RESPIRATORY CARE TO DISCUSS PLAN OF CARE FOR THIS PT. WILL REVIEW CHART AND PLAN OF CARE FOR THIS PT.
--- NOTE | 2020-11-15 23:00 | NUR ---
HAVE REPOSITIONED PT WITHIN PT BEING PRONE. USE OF 3 PERSONS WITH RESPIRATORY CARE. CEILING LIFT HAS BEEN USED. HAVE SUCTIONED PT PER ETT WITH RETURN OF SMALL AMOUNT OF WHITE COLORED SECRETIONS.
[2020-11-16 05:56] LABS: Hematocrit 42.2 % (37.0-53.0); Hemoglobin 12.9 g/dL (13.5-17.5); Mean Corpuscular HGB 31.2 pg (26.0-34.0); Mean Corpuscular HGB Conc 30.6 g/dL (31.5-36.5); Mean Corpuscular Volume 102 fL (80-100); Mean Platelet Volume 10.4 fL (9.1-12.4); NRBC ABSOLUTE 0.04 K/mm3 (0.00-0.02); NRBC Auto 0.2 /100 WBC (0.0-0.2); Platelet Count 370 K/mm3 (150-400); RDW Coefficient Variation 14.7 % (11.7-14.2); RDW Standard Deviation 55.7 fL (35.1-46.3); Red Blood Cell Count 4.13 M/mm3 (4.30-5.90); White Blood Cell Count 26.13 K/mm3 (4.00-11.30)
[2020-11-16 06:11] LABS: Alanine Aminotransfer (ALT/SGP 105 U/L (12-78); Albumin, Blood 2.2 g/dL (3.4-5.0); Albumin/Globulin Ratio 0.6 (0.8-1.8); Alk Phos 114 U/L (50-136); Anion Gap 0 mmol/L (6-16); Aspartate Aminotrans (AST/SGOT 35 U/L (12-37); Bilirubin, Total 0.4 mg/dL (0.1-1.0); Blood Urea Nitrogen 43 mg/dL (8-24); Bun/Creatinine Ratio 59.4 (12.0-20.0); CO2, Blood 43 mmol/L (21-32); Calcium, Blood 8.2 mg/dL (8.5-10.1); Chloride, Blood 101 mmol/L (98-108); Creatinine, Blood 0.72 mg/dL (0.60-1.20); Globulin, Blood 3.6 g/dL (2.2-4.0); Glomerular Filtration Rate >60 (60-); Glucose, Blood 124 mg/dL (70-99); Magnesium, Blood 3.1 mg/dL (1.6-2.4); Phosphorus, Blood 3.5 mg/dL (2.5-4.9); Potassium, Blood 4.4 mmol/L (3.5-5.5); Sodium, Blood 144 mmol/L (136-145); Total Protein, Blood 5.8 g/dL (6.4-8.2)
--- NOTE | 2020-11-16 06:30 | NUR ---
PT HAS GOOD URINARY OUTPUT PER TANNER AFTER DIURETICS GIVEN. TUBE FEEDING AT GOAL. LOW RESIDUALS. HAVE NEEDED TO GIVE PT DOSE OF HYDRALAZINE THIS NIGHT FOR ELEVATION IN BLOOD PRESSURES. WITH SEDATION, PT'S BLOOD PRESSURE AND HEART RATE WITHIN NORMAL LIMITS. WHEN SEDATION REDUCED, PT'S BLOOD PRESSURES AND HEART RATE INCREASE. WILL CONTINUE TO MONITOR PT, AND WILL REPORT OFF TO ONCOMING RN.
--- NOTE | 2020-11-16 07:15 | NUR ---
Assumed care of pt at 0700. Bedside report received from Royce CERVANTES. Pt unresponsive. Receiving sedation and paralytics for ventilator tolerance. Currently on 50 mcg/kg.
--- NOTE | 2020-11-16 07:15 | NUR ---
Assumed care of pt at 0700. Bedside report received from Royce CERVANTES. Pt receiving sedation and paralytic for ventilator tolerance. Pt is unresponsive. No movement noted to any extremities. TOF 2/4. BIS monitoring 40s. Pt is not restrainted. Ventilator settings ACVC 28/330/16/90%. SpO2 90% or greater. Lungs diminished t/o. No sputum suctioned from ETT. ST per monitor. Hypertensive. OG tube with feed and flushes per orders. 0 mL resiudal measured. Rectal tube in place draining liquid brown stool. Canales catheter draining clear, yellow urine. Sedation 50 mcg/kg/min propofol. 0.4 mcg/kg/hr precedex. 100 mcg/hr fentanyl. 5 mg/hr versed. Paralytic is 2 mcg/kg/min nimbex.
[2020-11-16 07:33] LABS: BAND PERCENT MAN 8 % (0-8); BASOPHILS PERCENT MAN 0 % (0-2); EOSINOPHILS ABSOLUTE MAN 0.78 K/mm3 (0.00-0.68); EOSINOPHILS PERCENT MAN 3 % (0-6); LYMPHOCYTES ABSOLUTE MAN 0.78 K/mm3 (0.84-5.20); LYMPHOCYTES PERCENT MAN 3 % (21-46); METAMYELOCYTE ABSOLUTE MAN 0.78 K/mm3 (0.00-0.00); METAMYELOCYTE PERCENT MAN 3 % (0-0); MONOCYTES ABSOLUTE MAN 0.52 K/mm3 (0.16-1.47); MONOCYTES PERCENT MAN 2 % (4-13); MYELOCYTE ABSOLUTE MAN 0.78 K/mm3 (0.00-0.00); MYELOCYTE PERCENT MAN 3 % (0-0); NEUTROPHILS ABSOLUTE MAN 22.47 K/mm3 (1.96-9.15); SEG NEUTROPHILS PERCENT MAN 78 % (41-73); TOTAL CELLS COUNTED 100
[2020-11-16 08:53] LABS: Vancomycin, Trough 18.3 ug/mL (5.0-10.0)
--- NOTE | 2020-11-16 12:30 | NUR ---
JAYSON mancilla on pt due to hypothermia. Will continue to closely reassess.
--- NOTE | 2020-11-16 12:44 | NUR ---
Pt placed in supine position at 1000. FiO2 increased prior to supination. ACVC 28/330/16/100%. SpO2 91% as pt in supine position. Pt maintained this SpO2 until he was repositioned for chest xray. Pt's sats dropped to 79% at lowest, and then recovered to 82-83%. Pt also hypertensive with SBP greater than 200. BIS 40s. Propofol increased to 60 mcg/kg/min. Precedex increased to 0.7 mcg/kg/hr. Pt given 100 mcg fentanyl IV push. SpO2 increased to 85-85%. Dr Juan notified. Provider increased PEEP to 18. This changed helped pt achieve SpO2 90% or greater. Dr Juan placed call to pt's son to update.
--- NOTE | 2020-11-16 15:40 | NUR ---
pt ches t xray is worse. dr colby called family son came in to see hime and will notify family. Plan is extubation and comfort care tomorrow at 9 am. encouraged him not to wait but he want to notify eveyone for sure. Advised him if he decline today we will not be able to wait. He chose [facility] on [address].
--- NOTE | 2020-11-16 16:00 | NUR ---
Pt's son in to see patient. Plan for him to call unit tomorrow and pick time to be here for extubation. Pt is tachycardic. Discussed with Dr Juan. Provider will enter new orders. Plan to turn off nimbex and see how pt tolerates.
--- NOTE | 2020-11-16 18:35 | NUR ---
SUMMARY At this time, pt is receiving 50 mcg/kg/min propofol, 0.4 mcg/kg/hr precedex, 100 mcg/hr fentanyl, and 6 mg/hr versed for sedation. Paralytic off. Pt was breathing over ventilator, rate 30-32 when he was supine. Pt proned at 1800 and now he is breathing at rate of ventilator. HR is 100-105, atrial flutter. BP stable. Pt got one dose of metoprolol PT. 0 mL residual measured today. Tolerating TF well. Rectal tube remains in place with new output today. Canales catheter draining clear green urine. Pt remains out of restraints. No movement noted to BUE or BLE. Okay to stay out of restraints per Dr Juan. Will continue to closely monitor until care handoff and bedside report with oncoming RN.
--- NOTE | 2020-11-16 20:00 | NUR ---
ASSUMED CARE OF PT AT 1915. REPORT RECEIVED. PT PRESENTS IN BED. PRONE POSITION. AC/VC 28, Tv 330, FIO2 100 PERCENT, PEEP 18. PT MAINTAINS 97-99 PERCENT SATURATIONS. DID DECREASE FIO2 TO 90 PERCENT. CURRENTLY 95 PERCENT SATURATION. WILL REVIEW CHART AND PLAN OF CARE FOR THIS PT.
--- NOTE | 2020-11-16 23:00 | NUR ---
PT CONTINUES ON NIMBEX DRIP WITH ADEQUATE TRAIN OF FOUR. BIS MONITORING REMAINS WITHIN 35-50. HAVE TITRATED SEDATION MEDICATIONS TO MAINTAIN BIS FOR ADEQUATE SEDATION. HAVE USED CEILING LIFT TO PROVIDE FOR SAFE TURNS OF PT WHILE IN PRONE POSITION. EFFORTS MADE TO PROTECT SKIN INTEGRITY WHILE IN PRONE POSITION. PT HAS MAINTAINED SATURATIONS > 90 PERCENT WITH CURRENT VENT SETTINGS. WILL CONTINUE TO MONITOR.
[2020-11-17 04:44] LABS: PCO2 Arterial 98.8 mmHg (35-45); PO2 Arterial 81.3 mmHg (80-100); pH Blood Arterial 7.29 (7.35-7.45)
[2020-11-17 05:15] LABS: Hematocrit 39.5 % (37.0-53.0); Hemoglobin 11.6 g/dL (13.5-17.5); Mean Corpuscular HGB 30.2 pg (26.0-34.0); Mean Corpuscular HGB Conc 29.4 g/dL (31.5-36.5); Mean Corpuscular Volume 103 fL (80-100); Mean Platelet Volume 10.4 fL (9.1-12.4); NRBC ABSOLUTE 0.03 K/mm3 (0.00-0.02); NRBC Auto 0.1 /100 WBC (0.0-0.2); Platelet Count 297 K/mm3 (150-400); RDW Standard Deviation 56.4 fL (35.1-46.3); Red Blood Cell Count 3.84 M/mm3 (4.30-5.90); White Blood Cell Count 22.52 K/mm3 (4.00-11.30)
[2020-11-17 05:45] LABS: Alanine Aminotransfer (ALT/SGP 73 U/L (12-78); Albumin/Globulin Ratio 0.6 (0.8-1.8); Alk Phos 102 U/L (50-136); Anion Gap -1 mmol/L (6-16); Aspartate Aminotrans (AST/SGOT 35 U/L (12-37); Bilirubin, Total 0.4 mg/dL (0.1-1.0); Blood Urea Nitrogen 46 mg/dL (8-24); CO2, Blood 43 mmol/L (21-32); Calcium, Blood 8.2 mg/dL (8.5-10.1); Chloride, Blood 103 mmol/L (98-108); Creatinine, Blood 0.75 mg/dL (0.60-1.20); Globulin, Blood 3.2 g/dL (2.2-4.0); Glomerular Filtration Rate >60 (60-); Glucose, Blood 129 mg/dL (70-99); Magnesium, Blood 3.3 mg/dL (1.6-2.4); Potassium, Blood 4.5 mmol/L (3.5-5.5); Sodium, Blood 145 mmol/L (136-145); Total Protein, Blood 5.2 g/dL (6.4-8.2)
--- NOTE | 2020-11-17 06:00 | NUR ---
PT CONTINUES IN PRONE POSITION. Q 2 HOUR DID CHANGE PT'S POSITION USEING CEILING LIFT FOR ASSISTANCE. NO RESIDUALS FROM OGT. HAVE SUCTIONED PT PER ETT WITH VERY MINIMMAL RETURN OF CLEAR SECRETIONS. WILL CONTINUE TO MONITOR PT, AND WILL REPORT OFF TO ONCOMING RN.
[2020-11-17 06:24] LABS: BAND PERCENT MAN 21 % (0-8); BASOPHILS PERCENT MAN 0 % (0-2); EOSINOPHILS PERCENT MAN 0 % (0-6); LYMPHOCYTES ABSOLUTE MAN 0.67 K/mm3 (0.84-5.20); LYMPHOCYTES PERCENT MAN 3 % (21-46); METAMYELOCYTE ABSOLUTE MAN 0.45 K/mm3 (0.00-0.00); METAMYELOCYTE PERCENT MAN 2 % (0-0); MONOCYTES ABSOLUTE MAN 0.45 K/mm3 (0.16-1.47); MONOCYTES PERCENT MAN 2 % (4-13); MYELOCYTE ABSOLUTE MAN 0.67 K/mm3 (0.00-0.00); MYELOCYTE PERCENT MAN 3 % (0-0); NEUTROPHILS ABSOLUTE MAN 20.26 K/mm3 (1.96-9.15); SEG NEUTROPHILS PERCENT MAN 69 % (41-73); TOTAL CELLS COUNTED 100
--- NOTE | 2020-11-17 07:15 | NUR ---
Assumed care of pt at 0700. Bedside report received from Royce CERVANTES. Pt sedated with propofol at 50 mcg/kg/min, precedex 0.3 mcg/kg/hr, fentanyl 100 mcg/min, versed 5 mg/hr. Receiving nimbex at 2 mcg/kg/min. Pt unresponsive. Synchronous with vent. Atrial flutter, rate 80s. OG tube with feeds and flushes per orders. 0 mL residual measured. Canales catheter in place, patent and draining. Rectal tube with liquid brown stool. Plan for son to come in today and withdraw care for patient.
--- NOTE | 2020-11-17 11:43 | NUR ---
Pt's son in to see pt at 1030. Met with media services director. When son directed team to do so, pt was extubated at 1100. Medicated with 4 mg morphine per recommendation from palliative care RN, Alesha. All IV drips stopped. Upon extubation, pt appeared comfortable. Son stepped out for extubation but was immediately in room afterwards. Pt at 1110. Pt's son departed with patient's belongings. Providers aware.
--- NOTE | 2020-11-17 12:26 | NUR ---
pt placed on comfort only son at bedside chaplian at bedside. pt passes peacfully. his walled phone watch clothes and phone bagged and sent with son with quarentine instructions.
--- NOTE | 2020-11-17 13:10 | NUR ---
Spiritual care visit conducted. Patient's son, Denis is bedside and tearful. I conduct a life review and provide emotional support and prayer. Denis exits patient's rm. Patient is extubated. TOD 1110. I provide grief support and prayer. Denis grieves appropriately and shows signs of being comforted. I will continue to remain available to family.
--- NOTE | 2020-11-21 15:42 | NUR ---
LATE ENTRY FROM 11/14/20 1900 END OF SHIFT VENT AC 28, Vt 330, FIO2 85%, PEEP 18. PT REMAINS PRONED, IS TOLERATING POSITION WELL. HR 70'S, BP STABLE. SPO2 93%, RR 28, PEAK PRESSURE 41. PRESSURE POINTS RELIEVED, TOLERATED WITHOUT DIFFICULTY. DRIPS REMAIN UNCHANGED, REPORT TO ONCOMING SHIFT.
== END 2020-11-17 11:10 | DRG 870 ==
LOC: ER 09:20 → ICUW 12:25 → PCU 12:25 → ERHOLD 12:25 → PCU 15:09 → ICUW 11-06 04:33
PROVIDERS: Family Medicine; Internal Medicine; Internal Medicine Critical Care Medicine; Internal Medicine Pulmonary Disease; Nurse Practitioner Acute Care; Pharmacist; Student in an Organized Health Care Education/Training Program; ADMIT Internal Medicine
PROC: 8E0ZXY6 Isolation (ICD-10-PCS; principal; 2020-11-03)
PROC: XW033E5 Introduction of Remdesivir Anti-infective into Peripheral Vein, Percutaneous Approach, New Technology Group 5 (ICD-10-PCS; 2020-11-03)
PROC: 3E0333Z Introduction of Anti-inflammatory into Peripheral Vein, Percutaneous Approach (ICD-10-PCS; 2020-11-03)
PROC: 5A09457 Assistance with Respiratory Ventilation, 24-96 Consecutive Hours, Continuous Positive Airway Pressure (ICD-10-PCS; 2020-11-03)
PROC: 5A1955Z Respiratory Ventilation, Greater than 96 Consecutive Hours (ICD-10-PCS; 2020-11-07)
PROC: 0BH17EZ Insertion of Endotracheal Airway into Trachea, Via Natural or Artificial Opening (ICD-10-PCS; 2020-11-07)
PROC: 02HV33Z Insertion of Infusion Device into Superior Vena Cava, Percutaneous Approach (ICD-10-PCS; 2020-11-07)
PROC: 3E043XZ Introduction of Vasopressor into Central Vein, Percutaneous Approach (ICD-10-PCS; 2020-11-07)
PROC: XW033H5 Introduction of Tocilizumab into Peripheral Vein, Percutaneous Approach, New Technology Group 5 (ICD-10-PCS; 2020-11-07)
DX: A41.89 Other specified sepsis (principal); U07.1 COVID-19; J12.82 Pneumonia due to coronavirus disease 2019; J96.01 Acute respiratory failure with hypoxia; R65.21 Severe sepsis with septic shock; Z51.5 Encounter for palliative care; Z66 Do not resuscitate; J18.9 Pneumonia, unspecified organism; N17.9 Acute kidney failure, unspecified; E87.1 Hypo-osmolality and hyponatremia; I47.2 Ventricular tachycardia; I48.92 Unspecified atrial flutter; D84.821 Immunodeficiency due to drugs; R74.01 Elevation of levels of liver transaminase levels; I48.91 Unspecified atrial fibrillation; I27.20 Pulmonary hypertension, unspecified; E87.70 Fluid overload, unspecified; T81.82XA Emphysema (subcutaneous) resulting from a procedure, initial encounter; E78.5 Hyperlipidemia, unspecified; Z60.2 Problems related to living alone; G47.33 Obstructive sleep apnea (adult) (pediatric); M05.10 Rheumatoid lung disease with rheumatoid arthritis of unspecified site; J98.2 Interstitial emphysema; G40.909 Epilepsy, unspecified, not intractable, without status epilepticus; N40.0 Benign prostatic hyperplasia without lower urinary tract symptoms; M06.9 Rheumatoid arthritis, unspecified; Z88.8 Allergy status to other drugs, medicaments and biological substances; Z79.52 Long term (current) use of systemic steroids; Z79.899 Other long term (current) drug therapy; Z98.890 Other specified postprocedural states; Y84.8 Other medical procedures as the cause of abnormal reaction of the patient, or of later complication, without mention of misadventure at the time of the procedure
CPT/HCPCS: 36415; 36430; 36569; 36600; 71045; 71260; 80053; 80069; 80202; 81001; 82248; 82330; 82803; 82947; 83605; 83735; 83880; 84100; 84132; 84145; 84443; 84484; 85025; 85610; 85651; 86140; 87040; 87070; 87086; 87205; 93005; 93010; 93306; 94003; 94660; 94762; 96365; 96372-59; 96375; 99285-25; A9270; C1751; C9113; J0282; J0360; J0456; J0610; J0696; J1100; J1650; J1940; J1953; J2060; J2250; J2270; J2543; J2704; J3010; J3262; J3370; J7030; J7050; J7060; J7070; J7120; Q9967; U0004